=== PATIENT | female | born 1955 | race Caucasian/White ===

== ENCOUNTER 2016-10-08 14:39 | Inpatient (IN) | payer OTHER ==
[~2016-10-08] VITALS: Ht 162.6 cm; Wt 96.6 kg
[~2016-10-08 14:39] MED LIST: ALDA2525 PO; ARIM1TAB PO; BENA20 PO; BUSP5 PO; CETI10 PO; DILA2TAB2; FERR220E3; FERR324T4 PO; FOLITAB5; GUAI600 PO; LAMO25TA PO; LEXA20TA PO; LISI-363 PO; MAGN250T3; METO50TA PO; MORP1INJ45 PO; MULT1TAB46; NAPR250T57 PO; NEXI40CA PO; NIFE1TAB85 PO; PROP20TA3 PO; SIMV20 PO; VITATAB25 PO; WOMECAP2 PO
[2016-10-08] MEDS: SODIUM CHLOR 0.9% 1000 ML INJ 1,000 ML IV SCH ×2 (15:44→19:28)
[2016-10-08 15:57] LABS: BACTERIA, URINE RARE /hpf; BLOOD, URINE NEG (NEG); GLUCOSE,URINE NEG (NEG); HYALINE CAST, URINE 1 /lpf (RARE); KETONE, URINE NEG (NEG); MUCUS URINE FEW /lpf (OCC); NITRITE,URINE NEG (NEG); SQUAMOUS EPITHELIAL CELL URINE 2 /hpf (0-5); TRANSITIONAL EPI CELLS, URINE <1 /hpf; URINE COLOR YELLOW (YELLW/STRAW)
[2016-10-08 15:58] LABS: COMMENT (UR) CATH-CULTURE IND; CULTURE IF INDICATED CATH CULTURE IND
--- NOTE | 2016-10-08 16:15 | PD ---
HPI Chief Complaint: General Weakness Time Seen by Provider: 17:11 Travel History International Travel<30 days: No Contact w/Intl Traveler<30days: No Traveled to known affect area: No History of Present Illness HPI 60-year-old female with unfortunate history of stage IV metastatic breast cancer , presents here at the request of her oncologist, Dr. Bryson Lucas for evaluation. The patient apparently has been unsteady on her gait and has had multiple falls. She's also had confusion which is worsening. She reportedly had a UTI and was prescribed Macrodantin. Unfortunate, Macrodantin was making her ill and they stop the Macrodantin after only 2 days of treatment. There is no reported fevers, chills. There is no reported chest pain, chest pressure. There is no reported shortness of breath or cough. The patient has obvious ecchymosis and her periorbital area as well as abrasions to her forehead. PFSH Past Medical History Anemia: Yes Asthma: Yes (FREQUENT BRONCHITIS) Depression: Yes Cancer: Yes (BREAST CA) Cardiovascular Problems: Yes Chemotherapy: Yes Diabetes: Yes (TYPE 2=CONTROLLED BY DIET) Endocrine: Yes (parathyroidism) Gastrointestinal Disorders: Yes GERD: Yes Genitourinary: No Hepatitis: No Hiatal Hernia: Yes Hypertension: Yes Immune Disorder: No Implanted Vascular Access Dvce: Yes Kidney Stones: Yes Musculoskeletal: No Neurologic: No Psychiatric: Yes (PTSD X 2 DEPRESSION) Reproductive: No Respiratory: Yes (ASTHMA) Immunizations Current: Yes Pancreatitis: Yes Thyroid Disease: No Tetanus Vaccination: Unknown Influenza Vaccination: No ?: Not Menopausal: Yes Ectopic : Yes Past Surgical History Abdominal Surgery: Yes (COLON RESECTION, CHOLECYSTECTOMY, ABD. HERNIA REPAIR) AICD: No Cardiac Surgery: No Ear Surgery: No Eye Surgery: No Genitourinary Surgery: Yes (LITHOTRIPSY) Gynecologic Surgery: No Joint Replacement: No Mastectomy: Yes (BILATERAL) Oral Surgery: No Pacemaker: No Thoracic Surgery: Yes (BILATERAL MASTECTOMY) Tonsillectomy: Yes Other Surgery: Yes (17 LYMPH NODES REMOVED ON LEFT, PARATHYROIDECTOMY) Social History Alcohol Use: No Tobacco Use: No Substance Use: No Allergies-Medications (Allergen,Severity, Reaction): Coded Allergies: Macrodantin (Verified Allergy, Severe, NAUSEA, 10/08/16) Cipro (Verified Adverse Reaction, Intermediate, VOMITING, 10/08/16) ONLY ON PO Keflex (Verified Adverse Reaction, Intermediate, VOMITING, 10/08/16) ONLY ON PO Sulfa (Verified Adverse Reaction, Intermediate, VOMITING, 10/08/16) ONLY ON PO Reported Meds & Prescriptions Reported Meds & Active Scripts Active Reported Simvastatin 20 Mg Tab 20 Mg PO DAILY Propranolol (Propranolol HCl) 20 Mg Tab 20 Mg PO Q12HR Multiple Vitamin 1 Tab 1 Tab PO DAILY Metoprolol Tartrate 50 Mg Tab 50 Mg PO BID Magnesium Oxide 250 Mg Tab 250 Mg PO DAILY Lisinopril 20 Mg Tab 20 Mg PO DAILY Lamotrigine ER (Lamotrigine) 25 Mg Arturo 25 Mg PO DAILY Dilaudid (Hydromorphone HCl) 2 Mg Tab 2 Mg PO Q4H PRN Mucinex ER 12 HR (Guaifenesin) 600 Mg Arturo 600 Mg PO BID Lexapro (Escitalopram Oxalate) 20 Mg Tab 20 Mg PO DAILY Vitamin D-1000 (Cholecalciferol) 1,000 Unit Tab 1,000 Units PO DAILY Cetirizine (Cetirizine HCl) 10 Mg Tab 10 Mg PO DAILY Buspirone (Buspirone HCl) 5 Mg Tab 5 Mg PO BID PRN Review of Systems Except as stated in HPI: all other systems reviewed are Neg General / Constitutional: No: Fever, Chills HENT: Positive: Headaches, Lightheadedness, No: Neck Stiffness, Neck Pain ( abrasions to the head.) Cardiovascular: No: Chest Pain or Discomfort, Palpitations Respiratory: No: Cough, Shortness of Breath Gastrointestinal: Positive: Loss of Appetite, No: Nausea, Vomiting, Diarrhea, Abdominal Pain Genitourinary: Positive: Other (recent UTI that was partially treated), No: Urgency, Dysuria, Incontinence Musculoskeletal: Positive: Weakness, No: Myalgias Skin: Positive Other (brain lesions to the for head) Neurologic: Positive: Weakness, Dizziness, Change in Mentation, Slurred Speech , No: Headache (although abrasions to the forehead and periorbital ecchymosis from falls.), Incontinence Physical Exam Narrative GENERAL: This is an ill appearing female in no obvious acute respiratory distress. The patient has obvious periorbital ecchymosis. SKIN: Focused skin assessment warm/dry. HEAD: Normocephalic. To abrasions to her forehead. These appear to be greater than 4 hours old. EYES: No scleral icterus. No injection or drainage. There is periorbital ecchymosis bilaterally. ENT: No nasal bleeding or discharge. Dry mucous membranes. NECK: Trachea midline. No JVD. Supple CARDIOVASCULAR: Regular rate and rhythm. No murmur appreciated. RESPIRATORY: No accessory muscle use. Clear to auscultation. Breath sounds equal bilaterally. GASTROINTESTINAL: Abdomen soft, non-tender, nondistended. MUSCULOSKELETAL: No obvious deformities. No skin tenting. No edema. NEUROLOGICAL: Awake and confused. No obvious cranial nerve deficits. Motor grossly within normal limits. Slurred speech. The patient is alert to person, not place or year. She knows the president is and the day of the week. Data Data Last Documented VS Vital Signs Date Time Temp Pulse Resp B/P Pulse Ox O2 Delivery O2 Flow Rate FiO2 10/08/16 16:17 73 16 143/98 98 10/08/16 15:45 Room Air Orders Electrocardiogram (10/08/16 15:03) Troponin I (10/08/16 15:03) Lactic Acid Sepsis Protocol (10/08/16 15:03) Urinalysis - C+S If Indicated (10/08/16 15:03) Blood Culture (10/08/16 15:03) Blood Glucose (10/08/16 15:03) Ecg Monitoring (10/08/16 15:03) Iv Access Insert/Monitor (10/08/16 15:03) Oximetry (10/08/16 15:03) Sodium Chloride 0.9% Flush (Ns Flush) (10/08/16 15:15) Sodium Chlor 0.9% 1000 Ml Inj (Ns 1000 M (10/08/16 15:03) Mri Brain W&W/O Contrast (10/08/16 15:36) Urine Culture (10/08/16 15:35) Place In Observation (10/08/16 ) Vital Signs (Adult) CRUZ.Q4H (10/08/16 17:28) Activity Oob With Assistance (10/08/16 17:28) Diet Heart Healthy (10/08/16 Dinner) Troponin I (10/08/16 21:00) Complete Blood Count With Diff (10/09/16 06:00) Comprehensive Metabolic Panel (10/09/16 06:00) Troponin I (10/09/16 06:00) Electrocardiogram (10/09/16 06:00) Admit Order (Ed Use Only) (10/08/16 17:31) Labs Laboratory Tests Test 10/08/16 10/08/16 15:00 15:35 Lactic Acid Level 1.8 mmol/L Troponin I 0.15 NG/ML Urine Color YELLOW Urine Turbidity HAZY Urine pH 6.0 Urine Specific [place] 1.020 Urine Protein 100 mg/dL Urine Glucose (UA) NEG mg/dL Urine Ketones NEG mg/dL Urine Occult Blood NEG Urine Nitrite NEG Urine Bilirubin NEG Urine Urobilinogen 2.0 MG/DL Urine Leukocyte Esterase SMALL Urine RBC 4 /hpf Urine WBC 11 /hpf Urine Squamous Epithelial 2 /hpf Cells Urine Transitional Epithelial <1 /hpf Cells Urine Bacteria RARE /hpf Urine Hyaline Casts 1 /lpf Urine Mucus FEW /lpf Microscopic Urinalysis Comment CATH-CULTURE IND MDM Medical Decision Making Medical Screen Exam Complete: Yes Emergency Medical Condition: Yes Differential Diagnosis Metastatic intracranial lesion versus traumatic intracranial injury versus sepsis versus metabolic derangement. Narrative Course 60-year-old female with unfortunate history of stage IV breast cancer, with metastatic lesions to her spine, who presents today at the request of Dr. Rodrigez for evaluation. The patient has a history of multiple falls striking her head. She was partially treated for UTI. She is noted to have a continued UTI. She is also noted to be dehydrated. MRI of the brain is pending at this time. She will need admission and has been discussed with Dr. Chucho oRse. I discussed with the patient's that Dr. Rice, physician replacing this physician, will evaluate the MRI and give him the results. The was very upset and angry that it was taking so long. I did apologize to him and stated that we have no control over the time it takes 2 to perform an MRI. He was still angry and was unhappy with the care. He made multiple comments that he was unhappy with how long it took. The patient has artery been admitted. Antibiotics for the UTI have been ordered. Diagnosis Primary Impression: Dehydration Additional Impressions: Cystitis weakness with multiple falls. Breast cancer metastasized to bone elevated troponin likely secondary to cardiomyopathy Manish Frey MD Oct 08, 2016 16:15
[2016-10-08 16:17] VITALS: BP 143/98; PULSE 73; RESP 16; O2SAT 98
[2016-10-08] MEDS ORDERED: CETI10 PO (17:23)
[2016-10-08] MEDS ORDERED: MAGN250T11 PO (17:23)
[2016-10-08] MEDS ORDERED: VITA1000 PO (17:23)
[2016-10-08] MEDS ORDERED: DILA2TAB2 PO (17:23)
[2016-10-08] MEDS ORDERED: METO50TA PO (17:23)
[2016-10-08] MEDS ORDERED: PROP20TA3 PO (17:23)
[2016-10-08] MEDS ORDERED: SIMV20TA PO (17:23)
[2016-10-08] MEDS ORDERED: LISI-515 PO (17:23)
[2016-10-08] MEDS ORDERED: LEXA20TA PO (17:23)
[2016-10-08] MEDS ORDERED: MULTTAB67 PO (17:23)
[2016-10-08] MEDS ORDERED: LAMO25TA PO (17:23)
[2016-10-08] MEDS ORDERED: MUCI600T PO (17:23)
[2016-10-08] MEDS ORDERED: BUSP5TAB PO (17:23)
[2016-10-08] MEDS ORDERED: MORPHINE SULFATE 4 MG/ML INJ IV PUSH ONE (17:30)
[2016-10-08] MEDS ORDERED: cefTRIAXone INJ 1,000 MG in SODIUM CHLORIDE 0.9% INJ 100 ML IV ONE (18:15)
[2016-10-08] MEDS ORDERED: GADOBENATE DIM PF 529 MG/ML 20ML VIAL (for RAD MRI) IV ONE (18:50)
[2016-10-08] MEDS: SODIUM CHLORIDE 0.9% FLUSH 10 ML FLUSH IVF PRN (19:28)
[2016-10-08 19:29] VITALS: BP 138/108; PULSE 77; RESP 18; O2SAT 96
--- NOTE | 2016-10-08 19:37 | RADRPT ---
EXAM DATE/TIME: 10/08/2016 18:33 [facility] COMPARISON: MRI BRAIN W & W/O CONTRAST, November 09, 2015, 15:43. CT BRAIN W/O CONTRAST, Dec, 20:10. INDICATIONS : Mass. CONTRAST: 19 cc Multihance (gadobenate) IV MEDICAL HISTORY : Carcinoma, breast. Hypertension. SURGICAL HISTORY : Colon resection. Sigmoidectomy. Hernia repair. ENCOUNTER: Subsequent ACUITY: 1 day PAIN SCORE: 3/10 LOCATION: cranial TECHNIQUE: Multiplanar, multisequence MRI of the brain was performed both prior to and following the administration of paramagnetic contrast. FINDINGS: There is a small meningioma coming off the cribriform plates behind the florencio nuvia measuring almost 1.5 cm in transverse diameter and 1.4 cm in craniocaudal dimension no change since 2015. There is no evidence for intracranial hemorrhage, mass effect, edema, or extra-axial fluid collections. There ar e no signs of acute infarction for technique. The diffusion portion is unremarkable. Slight degree o f brain atrophy is seen. Slight periventricular white matter changes are seen nonspecific mostly cons istent with chronic small vessel ischemic changes. CONCLUSION: Stable meningioma not changed since 2015. Marco Arceo MD on October 08, 2016 at 19:31 Board Certified Radiologist. This report was verified electronically.
[2016-10-08 20:20] VITALS: BP 139/107; PULSE 74; RESP 17; TEMP 96.8; O2SAT 95
--- NOTE | 2016-10-08 20:42 | HHI.HP ---
HPI Service [facility] Hospitalists Primary Care Physician Lesa Dickson M.D. Admission Diagnosis dehydration, cystitis, stage 4 metastatic breast cancer Chief Complaint: Sent by oncologist for general weakness, falls, confusion Travel History International Travel<30 Days: No Contact w/Intl Traveler <30 Da: No Traveled to Known Affected Are: No History of Present Illness 60-year-old female with history of stage IV metastatic breast cancer with metastases to lungs and bones, presents here at the request of her oncologist, Dr. Bryson Lucas for evaluation. The patient apparently has been unsteady on her gait and has had multiple falls of late. She's also had confusion which is worsening over the last few days. She reportedly had a UTI and was prescribed Macrodantin as outpatient. Unfortunately, Macrodantin was making her sick on her stomach and she stopped the Macrodantin after only 2 days of treatment. There is no reported fevers, chills. There is no reported chest pain, chest pressure. There is no reported shortness of breath or cough. The patient has obvious ecchymosis and her periorbital area as well as abrasions to her forehead from a reported fall approximately 2 days ago. There was no loss of consciousness with that fall. Patient reports that she is unsteady on her feet especially when she is ill with an infection. Per Dr. Lucas's notes her disease is extensive but had stabilized when comparing most recent PET scans. Her pain has been controlled with Dilaudid at home and Zofran has been used effectively for her nausea. Review of Systems ROS Limitations: Clinical Condition, Poor Historian Constitutional: COMPLAINS OF: Fatigue, Weight loss, Dizziness Ears, nose, mouth, throat: COMPLAINS OF: Vertigo Respiratory: DENIES: Apneas, Cough, Snoring, Wheezing, Hemoptysis, Sputum production, Shortness of breath Cardiovascular: COMPLAINS OF: Dyspnea on Exertion, DENIES: Chest pain, Palpitations, Syncope, PND, Lower Extremity Edema, Orthopnea, Claudication Gastrointestinal: COMPLAINS OF: Nausea, Vomiting Musculoskeletal: COMPLAINS OF: Joint pain, Back pain Hematologic/lymphatic: COMPLAINS OF: Bruising, DENIES: Lymphadenopathy Neurologic: COMPLAINS OF: Abnormal gait, Poor Balance Psychiatric: COMPLAINS OF: Anxiety, Depression Past Family Social History Past Medical History Altered mental status Major depressive disorder Diabetic nephropathy Encephalopathy GERD Hypertension Hyperlipidemia Hyperparathyroidism Metastatic breast cancer to bone and lung Pulmonary hypertension Past Surgical History Mastectomy Cholecystectomy Axillary lymph node dissection ERCP Laparoscopic repair of hernia Left lower parathyroidectomy Partial colectomy in 1989 Tonsillectomy and adenoidectomy Open reduction internal fixation left elbow Reported Medications Simvastatin 20 Mg Tab 20 Mg PO DAILY Propranolol (Propranolol HCl) 20 Mg Tab 20 Mg PO Q12HR Multiple Vitamin 1 Tab 1 Tab PO DAILY Metoprolol Tartrate 50 Mg Tab 50 Mg PO BID Magnesium Oxide 250 Mg Tab 250 Mg PO DAILY Lisinopril 20 Mg Tab 20 Mg PO DAILY Lamotrigine ER (Lamotrigine) 25 Mg Arturo 25 Mg PO DAILY Dilaudid (Hydromorphone HCl) 2 Mg Tab 2 Mg PO Q4H PRN Mucinex ER 12 HR (Guaifenesin) 600 Mg Artruo 600 Mg PO BID Lexapro (Escitalopram Oxalate) 20 Mg Tab 20 Mg PO DAILY Vitamin D-1000 (Cholecalciferol) 1,000 Unit Tab 1,000 Units PO DAILY Cetirizine (Cetirizine HCl) 10 Mg Tab 10 Mg PO DAILY Buspirone (Buspirone HCl) 5 Mg Tab 5 Mg PO BID PRN Allergies: Coded Allergies: Macrodantin (Verified Allergy, Severe, NAUSEA, 10/08/16) Cipro (Verified Adverse Reaction, Intermediate, VOMITING, 10/08/16) ONLY ON PO Keflex (Verified Adverse Reaction, Intermediate, VOMITING, 10/08/16) ONLY ON PO Sulfa (Verified Adverse Reaction, Intermediate, VOMITING, 10/08/16) ONLY ON PO Family History Noncontributory Social History Former smoker Lives with her but they've had some marital conflict Generally walks with a cane or walker Occasionally drinks alcohol Originally from [place] but now lives in [place] Physical Exam Vital Signs Vital Signs Date Time Temp Pulse Resp B/P Pulse Ox O2 Delivery O2 Flow Rate FiO2 10/08/16 19:29 77 18 138/108 96 Room Air 10/08/16 16:17 73 16 143/98 98 10/08/16 15:45 75 16 96 Room Air Physical Exam GENERAL: This is a well-nourished, well-developed patient, in no apparent distress. She is a bit confused but that is her baseline per caregiver report. SKIN: Periorbital ecchymosis with 2 abrasions on the right frontal scalp and one area of ecchymosis right forehead HEAD: As noted above. No temporal or scalp tenderness. EYES: Pupils equal round and reactive. Extraocular motions intact. No scleral icterus. No injection or drainage. ENT: Nose without bleeding, purulent drainage or septal hematoma. . Airway patent. NECK: Trachea midline. No JVD or lymphadenopathy. Supple, nontender, no meningeal signs. CARDIOVASCULAR: Regular rate and rhythm without murmurs, gallops, or rubs. RESPIRATORY: Clear to auscultation. Breath sounds equal bilaterally with decreased breath sounds in the bases. No wheezes, rales, or rhonchi. GASTROINTESTINAL: Abdomen soft, non-tender, nondistended. No hepato-splenomegaly , or palpable masses. No guarding. MUSCULOSKELETAL: Extremities without clubbing, cyanosis. Trace edema in her feet. No calf tenderness. NEUROLOGICAL: Awake and alert. Cranial nerves II through XII intact. Motor and sensory grossly within normal limits. 4.5 out of 5 muscle strength in all muscle groups. Normal speech. Laboratory Laboratory Tests Test 10/08/16 10/08/16 15:00 15:35 Lactic Acid Level 1.8 Troponin I 0.15 Urine Color YELLOW Urine Turbidity HAZY Urine pH 6.0 Urine Specific Pearl 1.020 Urine Protein 100 Urine Glucose (UA) NEG Urine Ketones NEG Urine Occult Blood NEG Urine Nitrite NEG Urine Bilirubin NEG Urine Urobilinogen 2.0 Urine Leukocyte Esterase SMALL Urine RBC 4 Urine WBC 11 Urine Squamous Epithelial 2 Cells Urine Transitional Epithelial <1 Cells Urine Bacteria RARE Urine Hyaline Casts 1 Urine Mucus FEW Microscopic Urinalysis Comment CATH-CULTURE IND Date/Time Procedure Status Source Growth 10/08/16 15:35 Urine Culture Received Urine Catheterized Urine Pending 10/08/16 15:15 Aerobic Blood Culture Received Blood Peripheral Pending 10/08/16 15:15 Anaerobic Blood Culture Received Blood Peripheral Pending Imaging Last 72 hours Impressions Brain MRI 10/08/16 1536 Signed Impressions: Service Date/Time: , October 08, 2016 18:33 - CONCLUSION: Stable meningioma not changed since 2016. Marco Arceo MD Assessment and Plan Problem List: (1) Cystitis Status: Acute Plan: Patient has multiple sensitivities to oral antibiotics. These all appear to be GI related and she tolerates IV antibiotics well. We'll continue current IV Rocephin. (2) Troponin I above reference range Status: Acute Plan: No chest pain outside her musculoskeletal complaints. Possibly associated with recent trauma We'll monitor. Likely would not be overly aggressive given her other significant comorbidities. (3) Breast cancer metastasized to bone Status: Chronic Plan: Per Dr. Lucas. Palliative chemotherapy. (4) HTN (hypertension) Status: Chronic Plan: Continue medications. (5) Depression Status: Chronic Plan: Continue medication. (6) Diabetic nephropathy associated with type 2 diabetes mellitus Status: Chronic Plan: Apparently well controlled with diet as her last A1c was 4.9 in March 2016. Discussed Condition With Patient, her caregiver, her and ER physician. Problem Qualifiers (1) Breast cancer metastasized to bone: Qualified Code: C50.912 - Breast cancer metastasized to bone, left (2) HTN (hypertension): Qualified Code: I10 - Essential hypertension (3) Depression: Chucho Rose MD PhD Oct 08, 2016 20:42
[2016-10-08] MEDS ORDERED: NS + KCL 20 MEQ INJ 1,000 ML IV SCH (21:00)
[2016-10-08] MEDS: busPIRone HCL 10 MG TAB PO SCH (21:03)
[2016-10-08] MEDS: METOPROLOL TARTRATE 50 MG TAB PO SCH (21:04)
[2016-10-09] VITALS: BP 118/90; PULSE 77; RESP 19; TEMP 97.6; O2SAT 96
[2016-10-09] MEDS: ALPRAZolam 0.5 MG TAB PO PRN (00:44)
[2016-10-09] MEDS: HYDROmorphone HCL 2 MG TAB PO PRN (00:55)
[2016-10-09 04:00] VITALS: BP 122/90; PULSE 75; RESP 17; TEMP 97.1; O2SAT 96
[2016-10-09 07:44] LABS: AUTOMATED NEUTROPHIL # 2.4 TH/MM3 (1.8-7.7); BASOPHIL % 0.8 % (0.0-2.0); HEMATOCRIT 35.3 % (35.0-46.0); HEMO FLAGS DIFF FINAL; LYMPHOCYTE # 0.9 TH/MM3 (1.0-4.8); MEAN CELL VOLUME 86.4 FL (80.0-100.0); MEAN CORPUSCULAR HEMOGLOBIN 27.3 PG (27.0-34.0); MEAN CORPUSCULAR HGB CONC 31.6 % (32.0-36.0); MONO % 13.3 % (0.0-8.0); NEUT % 61.9 % (16.0-70.0); PLATELET COUNT 165 TH/MM3 (150-450); RED BLOOD COUNT 4.09 MIL/MM3 (4.00-5.30); RED CELL DISTRIBUTION WIDTH 19.5 % (11.6-17.2); WHITE BLOOD COUNT 3.9 TH/MM3 (4.0-11.0)
[2016-10-09 07:47] LABS: ANION GAP 11 MEQ/L (5-15); BICARBONATE 20.5 MEQ/L (21.0-32.0); BLOOD UREA NITROGEN 21 MG/DL (7-18); CHLORIDE 109 MEQ/L (98-107); SODIUM (NA) 140 MEQ/L (136-145)
[2016-10-09 07:50] LABS: ALKALINE PHOSPHATASE 136 U/L (45-117); ALT (GPT) 32 U/L (10-53); AST (GOT) 37 U/L (15-37); GLOMERULAR FILTRATION RATE 41 ML/MIN (>89); TOTAL BILIRUBIN ADULT 0.5 MG/DL (0.2-1.0)
[2016-10-09 07:56] LABS: POTASSIUM 4.4 MEQ/L (3.5-5.1)
[2016-10-09 08:00] VITALS: BP 172/86; PULSE 74; RESP 20; TEMP 97; O2SAT 96
--- NOTE | 2016-10-09 08:33 | HHI.PR ---
Subjective Remarks mostly confused but cooperative Objective Vitals forehead with abrasions periorbital ecchymosis heart reg lung cta abd s/nt/nabs ext no edema neuro. no facial droop. moves all 4 ext's well in bed. confused and partially able to reorient her pleasant and follows commands. Vital Signs Date Time Temp Pulse Resp B/P Pulse Ox O2 Delivery O2 Flow Rate FiO2 10/09/16 04:00 97.1 75 17 122/90 96 10/09/16 01:55 18 10/09/16 00:00 97.6 77 19 118/90 96 10/08/16 20:20 96.8 74 17 139/107 95 10/08/16 19:29 77 18 138/108 96 Room Air 10/08/16 16:17 73 16 143/98 98 10/08/16 15:45 75 16 96 Room Air 10/08/16 10/08/16 10/09/16 15:00 23:00 07:00 Intake Total 480 ml Balance 480 ml Intake Oral 480 ml # Voids 1 2 # Bowel Movements 0 Result Diagram: 10/09/16 0620 10/09/16 0620 Imaging Last 72 hours Impressions Brain MRI 10/08/16 1536 Signed Impressions: Service Date/Time: October 18:33 - CONCLUSION: Stable meningioma not changed since 2015. 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 nodes s/p willie. mastectomy, LN dissection, and chemotherapy. - Now with recurrent adenocarcinoma with breast mets to thoracolumbar spine/ sacrum, bilateral femurs. - She has had difficulty walking on left leg probably due to tumor impingement on nerve - MRI brain (11/09/15) --> no metastasis to brain noted - Further imaging revealed widespread taz metastatic disease - Neurosurgery was consulted for the sacral mass which extends into the iliac area and sacroiliac joints which is likely irritating the left lumbosacral plexus or nerve roots and the cause for her back pain and left LE weakness. -She was admitted last yr with metabolic encephalopathy -She is undergoing chemo with Dr Lucas. Last pet scan in August showed stable dz. Brought in for frequents falls/unsteady gait, and more delirium. labs reveal some degree of dehydration/emilee. she had recent problems with diarrhea there was question of uti outpt and she had been placed on abx which made her sick. eval for metabolic causes underway again ED initiated abx and cx pending. gentle ivf and monitor for chf decompensation PT eval dvt prophylaxis high fall risk currently. (2) Falls frequently Status: Acute Plan: see above (3) EMILEE (acute kidney injury) Status: Acute Plan: see above (4) Encephalopathy acute Status: Acute Plan: see above (5) Breast cancer metastasized to bone Status: Chronic Plan: Per Dr. Lucas. Palliative chemotherapy. (6) Cardiomyopathy Status: Chronic Plan: systolic chf compensated. ef 35% (7) HTN (hypertension) Status: Chronic Plan: Continue medications. (8) Depression Status: Chronic Plan: Continue medication. Problem Qualifiers (1) Breast cancer metastasized to bone: Qualified Code: C50.912 - Breast cancer metastasized to bone, left (2) HTN (hypertension): Qualified Code: I10 - Essential hypertension (3) Depression: Bryson Steiner MD Oct 09, 2016 08:33 Bryson Steiner MD Oct 09, 2016 08:33
[2016-10-09] MEDS ORDERED: LAMOTRIGINE 25 MG PO SCH (09:00)
[2016-10-09] MEDS ORDERED: NON-FORMULARY DRUG (Magnesium Oxide 250 MG) PO SCH (09:00)
[2016-10-09] MEDS: busPIRone HCL 10 MG TAB PO SCH ×2 (09:22→22:48)
[2016-10-09] MEDS: METOPROLOL TARTRATE 50 MG TAB PO SCH ×2 (09:22→22:48)
[2016-10-09] MEDS: MULTIVITAMIN TAB PO SCH (09:22)
[2016-10-09] MEDS: ESCITALOPRAM OXALATE 20 MG TAB PO SCH (09:22)
[2016-10-09] MEDS: PRAVASTATIN SOD 40 MG TAB PO SCH (09:22)
[2016-10-09 12:00] VITALS: BP 135/90; PULSE 73; RESP 20; TEMP 96.3; O2SAT 96
--- NOTE | 2016-10-09 13:40 | EKG ---
Date Performed: 10/08/2016 Time Performed: 16:00:00 PTAGE: 60 years EKG: Sinus rhythm NONSPECIFIC T-WAVE ABNORMALITY BORDERLINE ECG NO PREVIOUS TRACING DOCTOR: Yaya Ayala Interpretating Date/Time 10/09/2016 13:37:19
--- NOTE | 2016-10-09 13:41 | EKG ---
Date Performed: 10/09/2016 Time Performed: 01:52:56 PTAGE: 60 years EKG: Sinus rhythm SEPTAL MYOCARDIAL INFARCTION , PROBABLY OLD ABNORMAL ECG Compared to prior tracing no significant ch jayjay PREVIOUS TRACING : 10/08/2016 16.00 DOCTOR: Yaya Ayala Interpretating Date/Time 10/09/2016 13:37:31
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
[2016-10-09 16:00] VITALS: BP 150/92; PULSE 78; RESP 20; TEMP 97.9; O2SAT 98
--- NOTE | 2016-10-09 18:35 | MB ---
cc: ANGIE LING M.D. DATE OF CONSULTATION 10/09/16 DATE OF 1955 AGE [id number]. REASON FOR CONSULTATION Change in mental status, falls. HISTORY OF PRESENT ILLNESS The patient is a 60-year-old woman with stage IV metastatic breast cancer with metastasis to the lungs and bones, presented to the hospital per her oncologist, Dr. Lucas for evaluation of falls, unsteady gait, confusion. She reportedly had a UTI and was in the past on Macrodantin, now she is on ceftriaxone I believe and culture and sensitivity is pending for her UA. The patient denies any headache, chest pain, shortness of breath. She is confused, not a very good historian at this point in time. States at times she feels dizzy, lightheaded, cannot tell me if she has passed out or not but she has had abrasions on the forehead and ecchymosis around the eyes. Apparently, the patient has a most recent PET scan that has been stable. She is at home on Dilaudid p.r.n. and Zofran. PAST MEDICAL HISTORY Her past medical history is of depression, diabetic nephropathy, encephalopathy, reflux, hypertension, hyperlipidemia. Metastatic Breast cancer to the bone and lung. Hyperparathyroidism per chart, pulmonary hypertension. PAST SURGICAL HISTORY Mastectomy, cholecystectomy, axillary lymph node resection, ERCP, laparoscopic repair of hernia, parathyroidectomy, left lower partial colectomy 1989. Tonsils and adenoids, ORIF left elbow. MEDICATIONS Home medicines are: 1. Simvastatin. 2. Propranolol. 3. Multivitamins. 4. Metoprolol. 5. Magnesium. 6. Lisinopril. 7. Lamotrigine. 8. Dilaudid. 9. Mucinex. 10. Lexapro. 11. Vitamin D. 12. Cetirizine. 13. Buspirone. ALLERGIES ALLERGY TO MACRODANTIN, CIPRO, KEFLEX, SULFA. FAMILY HISTORY Family history noncontributory. SOCIAL HISTORY Ex-smoker. Lives with her . Usually walks with a cane or walker. Rare occasional alcohol.. PHYSICAL EXAMINATION VITAL SIGNS: On exam vitals temperature is 97, pulse 74, respiratory rate 20, blood pressure 172/86, satting at 96%. Her lowest blood pressure since admission had been 118/90. NECK: Supple. I do not appreciate any carotid bruits. HEART: Her heart is regular. LUNGS: Clear. NEURO: She is awake and alert. She knows she is in the hospital, cannot name the hospital. She knows it is October 2016, does not know the day or the date. Her speech otherwise is fluent. Pupils are reactive. There is no nystagmus. Visual tovar seem full. Face symmetrical, tongue midline. She does have abrasions over the forehead from the fall as well as ecchymosis nose and eye region orbital periorbital. Motor wallace she does not exhibit any significant weakness in one area. No Fadi's sign. No drift. No leg lag. Toes are downgoing. Sensory exam is intact to light touch and noxious stimuli pinprick. [id number] she does not pass point. Gait is withheld due to safety. Will need to have physical therapy assess her. LABORATORY DATA CBC white count 3.9, hemoglobin 11.1, RDW is 19.5, platelets 165,000. Chemistries, ammonia is 45. Her troponin three sets 0.15, 0.09, 0.16. Ammonia is 45 but creatinine is 1.32, BUN 21, GFR 41, CO2 20.5, albumin 3.1. Urine is hazy, 100 protein, 11 white cells. Cultures pending. Microbiology so far shows immature growth of the urine. No growth one day in the blood. MRI of the brain with and without gadolinium shows a small meningioma off of the cribriform plate measuring 1.5 x 1.4. No change since 2016. There is no intracranial hemorrhage. No mass effect. No edema. No fluid collections no acute infarct. Some white matter changes with small vessel disease. IMPRESSION 1. Change in mental status, mild encephalopathy. 2. Falls, etiology unknown at this point in time. RECOMMENDATIONS From my perspective would be to obtain an EEG. Have PT assess her. I do not see any signs of orthostatic hypotension. Do not think we need to do orthostatics at this time, however, consideration. I do not think she has a paraneoplastic panel but will defer that to her oncologist and certainly we can get a paraneoplastic lab panel. Consider getting another protein electrophoresis, a CEA if indicated. Will get some vitamin levels, B12, B1, B6 and further recommendations to be made accordingly but I think physical therapy needs to get her out of bed. She already is on ceftriaxone. Will wait for the UA to see if it grows any bacteria. I would limit her pain medications as much as possible in the event contributes to some of her falls. She does ambulate at baseline she says with a cane or walker, so not sure that she have a fall with these add on appliances or not. Continue current recommendations. Please call me with any questions, concerns or updates. MD CRISTOBAL Rivera/SEAMUS /1:08 PM /6:14 PM
[2016-10-09 20:00] VITALS: BP 160/93; PULSE 80; RESP 20; TEMP 97.4; O2SAT 95
[2016-10-09] MEDS ORDERED: cefTRIAXone INJ 1,000 MG in SODIUM CHLORIDE 0.9% INJ 100 ML IV SCH (20:00)
[2016-10-10] VITALS (7 sets, daily range): BP systolic 116–159; BP diastolic 74–117; PULSE 71–82; RESP 17–22; TEMP 96–97.2; O2SAT 93–100
[2016-10-10] MEDS: PRAVASTATIN SOD 40 MG TAB PO SCH (08:07)
[2016-10-10] MEDS: MULTIVITAMIN TAB PO SCH (08:07)
[2016-10-10] MEDS: METOPROLOL TARTRATE 50 MG TAB PO SCH ×2 (08:07→20:38)
[2016-10-10] MEDS: busPIRone HCL 10 MG TAB PO SCH ×2 (08:07→20:38)
[2016-10-10] MEDS: SODIUM CHLORIDE 0.9% FLUSH 10 ML FLUSH IVF PRN (08:08)
[2016-10-10] MEDS: ESCITALOPRAM OXALATE 20 MG TAB PO SCH (08:08)
[2016-10-10] MEDS ORDERED: ALTEPLASE RECOMBINANT 2 MG VIAL INTRACATH SCH (08:15)
--- NOTE | 2016-10-10 11:11 | HHI.PR ---
Subjective Remarks more alert and still confused but improved was oob and ambulating to bedside commode unassisted. Objective Vitals heart reg lung cta abd s/nt ext no edema periorbital ecchymosis forehead abrasions. more oriented but still confused. pleasant and follows commands. Vital Signs Date Time Temp Pulse Resp B/P Pulse Ox O2 Delivery O2 Flow Rate FiO2 10/10/16 08:00 96.0 74 22 156/105 100 10/10/16 04:00 97.2 82 20 147/90 95 10/10/16 00:00 96.9 77 18 144/107 93 10/09/16 20:00 97.4 80 20 160/93 95 10/09/16 16:00 97.9 78 20 150/92 98 10/09/16 12:00 96.3 73 20 135/90 96 10/09/16 10/09/16 10/10/16 15:00 23:00 07:00 Intake Total 1080 ml 110 ml 240 ml Balance 1080 ml 110 ml 240 ml Intake Oral 1080 ml 240 ml IV Total 110 ml # Voids 7 3 # Bowel Movements 1 1 Result Diagram: 10/09/16 0620 10/09/16 0620 Imaging Last 72 hours Impressions Brain MRI 10/08/16 1536 Signed Impressions: Service Date/Time: October 18:33 - CONCLUSION: Stable meningioma not changed since 2015. 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 nodes s/p willie. mastectomy, LN dissection, and chemotherapy. - Now with recurrent adenocarcinoma with breast mets to thoracolumbar spine/ sacrum, bilateral femurs. - She has had difficulty walking on left leg probably due to tumor impingement on nerve - MRI brain (11/09/15) --> no metastasis to brain noted - Further imaging revealed widespread taz metastatic disease - Neurosurgery was consulted for the sacral mass which extends into the iliac area and sacroiliac joints which is likely irritating the left lumbosacral plexus or nerve roots and the cause for her back pain and left LE weakness. -She was admitted last yr with metabolic encephalopathy -She is undergoing chemo with Dr Lucas. Last pet scan in August showed stable dz. Brought in for frequents falls/unsteady gait, and more delirium. labs reveal some degree of dehydration/emilee. she had recent problems with diarrhea there was question of uti outpt and she had been placed on abx which made her sick. eval for metabolic causes underway again ED initiated abx and cx pending. gentle ivf and monitor for chf decompensation PT eval dvt prophylaxis high fall risk currently. f/u pending labs. pt agrees to snf upon d/c spoke to neurology. (2) Falls frequently Status: Acute Plan: see above (3) EMILEE (acute kidney injury) Status: Acute Plan: see above (4) Encephalopathy acute Status: Acute Plan: see above (5) Breast cancer metastasized to bone Status: Chronic Plan: Per Dr. Lucas. Palliative chemotherapy. (6) Cardiomyopathy Status: Chronic Plan: systolic chf compensated. ef 35% (7) HTN (hypertension) Status: Chronic Plan: Continue medications. (8) Depression Status: Chronic Plan: Continue medication. Problem Qualifiers (1) Breast cancer metastasized to bone: Qualified Code: C50.912 - Breast cancer metastasized to bone, left (2) HTN (hypertension): Qualified Code: I10 - Essential hypertension (3) Depression: Bryson Steiner MD Oct 10, 2016 11:11
[2016-10-10] MEDS ORDERED: LACTULOSE SYRUP 20 GM/30 ML CUP PO ONE (12:00)
[2016-10-10 12:45] LABS: BICARBONATE 20.2 MEQ/L (21.0-32.0); POTASSIUM 4.4 MEQ/L (3.5-5.1)
[2016-10-10] MEDS: HYDROmorphone HCL 2 MG TAB PO PRN (14:47)
[2016-10-10] MEDS ORDERED: SODIUM CHLOR 0.9% 1000 ML INJ 1,000 ML IV ONE (15:45)
[2016-10-10] MEDS ORDERED: cloNIDine HCL 0.1 MG TAB PO PRN (17:30)
[2016-10-10] MEDS ORDERED: LISINOPRIL 10 MG TAB PO ONE (17:30)
[2016-10-10] MEDS: LISINOPRIL 10 MG TAB PO SCH (20:38)
--- NOTE | 2016-10-10 22:33 | MG ---
cc: MARY SAINI M.D. Lab No: [id number] Date: 10/10/16 Age: 60 Sex: F Race: DATE OF 1955 Photic stimulation only. Awake, drowsy study. MRI shows stable meningioma. EEG 2015 showed some encephalopathy. This is a 60-year-old woman, unsteady gait and some falls, confusion with worsening stage IV metastatic breast cancer. MEDICATIONS 1. Lexapro. 2. Theragran. 3. Pravachol. 4. Dilaudid. 5. Xanax. DESCRIPTION OF RECORD A lot of head movement but overall the patient has a background rhythm of 6 to 7 Hz. ___ theta frequency. Mary Saini MD DF/EO /8:43 PM /10:25 PM
--- NOTE | 2016-10-10 22:55 | MG ---
cc: MARY SAINI MD Lab No: [id number] Date: 10/10/16 Age: 60 Sex: F Race: DATE OF [birth year] With photic stimulation. This is a patient with stable meningioma of the brain with metastatic breast cancer. EEG in 2015 showed encephalopathy. She comes in with worsening gait and fall. Currently on pain medication, Lexapro, Theragran. DESCRIPTION OF RECORD The patient exhibits some slowing between 5 and 6 Hz, beta frequency. Quite a bit of artifact from movement but otherwise symmetrical background. Quite a bit of movement. EKG portion looks sinus. There is some question of some sharp waves seen on occasion, bilateral. here is no active seizure-like events in the recording. Photic stimulation elicits a minimal driving response. There is some question of some phase reversal seen also in both temporal leads. IMPRESSION Abnormal EEG due to some mild slowing and some occasional sharps and phase reversals that may be a potential for seizure-like activity. However, there were no active seizures in this recording. Clinical correlation. Mary Saini MD DF/ /8:45 PM /10:47 PM
[2016-10-10] MEDS: ALPRAZolam 0.5 MG TAB PO PRN (23:07)
[2016-10-11] VITALS (7 sets, daily range): BP systolic 130–149; BP diastolic 90–103; PULSE 69–78; RESP 19–24; TEMP 96–96.9; O2SAT 95–99
[2016-10-11 05:14] LABS: BICARBONATE 19.2 MEQ/L (21.0-32.0); POTASSIUM 4.5 MEQ/L (3.5-5.1)
[2016-10-11] MEDS: MULTIVITAMIN TAB PO SCH (08:37)
[2016-10-11] MEDS: LISINOPRIL 10 MG TAB PO SCH ×2 (08:37→20:00)
[2016-10-11] MEDS: METOPROLOL TARTRATE 50 MG TAB PO SCH ×2 (08:38→20:00)
[2016-10-11] MEDS: PRAVASTATIN SOD 40 MG TAB PO SCH (08:38)
[2016-10-11] MEDS: busPIRone HCL 10 MG TAB PO SCH ×2 (08:38→20:00)
[2016-10-11] MEDS: ESCITALOPRAM OXALATE 20 MG TAB PO SCH (08:41)
--- NOTE | 2016-10-11 08:43 | HHI.PR ---
Subjective Remarks doing better. seems more oriented she seems motivated to go to rehab. Objective Vitals oriented to place/time/person cooperative and pleasant moves all ext's able to transfer to bedside commode ecchymosis periorbital heart reg lung cta abd s/nt ext n edema Vital Signs Date Time Temp Pulse Resp B/P Pulse Ox O2 Delivery O2 Flow Rate FiO2 10/11/16 03:44 96.3 69 19 149/96 97 10/11/16 00:00 96.9 78 19 138/93 95 10/10/16 20:35 97.2 71 17 135/95 97 Automatic Cuff 10/10/16 16:00 96.8 72 22 148/107 96 10/10/16 13:00 148/105 10/10/16 12:00 96.2 76 20 159/117 99 10/10/16 10/10/16 10/11/16 15:00 23:00 07:00 Intake Total 240 ml 120 ml 1399 ml Balance 240 ml 120 ml 1399 ml Intake Oral 240 ml 120 ml 480 ml IV Total 919 ml # Voids 4 2 1 # Bowel Movements 2 1 Result Diagram: 10/09/16 0620 10/11/16 0415 Imaging Last 72 hours Impressions Brain MRI 10/08/16 1536 Signed Impressions: Service Date/Time: October 18:33 - CONCLUSION: Stable meningioma not changed since 2015. 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 nodes s/p willie. mastectomy, LN dissection, and chemotherapy. - Now with recurrent adenocarcinoma with breast mets to thoracolumbar spine/ sacrum, bilateral femurs. - She has had difficulty walking on left leg probably due to tumor impingement on nerve - MRI brain (11/09/15) --> no metastasis to brain noted - Further imaging revealed widespread taz metastatic disease - Neurosurgery was consulted for the sacral mass which extends into the iliac area and sacroiliac joints which is likely irritating the left lumbosacral plexus or nerve roots and the cause for her back pain and left LE weakness. -She was admitted last yr with metabolic encephalopathy -She is undergoing chemo with Dr Lucas. Last pet scan in August showed stable dz. Brought in for frequents falls/unsteady gait, and more delirium. labs reveal some degree of dehydration/emilee. she had recent problems with diarrhea there was question of uti outpt and she had been placed on abx which made her sick. eval for metabolic causes underway again. lactulose given. ED initiated abx . stop abx. gentle ivf and monitor for chf decompensation PT eval dvt prophylaxis high fall risk currently. pt agrees to snf upon d/c..if stable consider d/c tomorrow. spoke to neurology. abnormal eeg noted (2) Falls frequently Status: Acute Plan: see above (3) EMILEE (acute kidney injury) Status: Acute Plan: see above (4) Encephalopathy acute Status: Acute Plan: see above (5) Breast cancer metastasized to bone Status: Chronic Plan: Per Dr. Lucas. Palliative chemotherapy. (6) Cardiomyopathy Status: Chronic Plan: systolic chf compensated. ef 35% (7) HTN (hypertension) Status: Chronic Plan: Continue medications. (8) Depression Status: Chronic Plan: Continue medication. Problem Qualifiers (1) Breast cancer metastasized to bone: Qualified Code: C50.912 - Breast cancer metastasized to bone, left (2) HTN (hypertension): Qualified Code: I10 - Essential hypertension (3) Depression: Bryson Steiner MD Oct 11, 2016 08:43
[2016-10-11] MEDS ORDERED: LACTULOSE SYRUP 20 GM/30 ML CUP PO ONE (08:45)
[2016-10-11] MEDS: HYDROmorphone HCL 2 MG TAB PO PRN ×2 (17:56→22:34)
[2016-10-12] VITALS (7 sets, daily range): BP systolic 130–148; BP diastolic 66–101; PULSE 35–91; RESP 18–24; TEMP 96.2–97.1; O2SAT 96–100
[2016-10-12] MEDS: ALPRAZolam 0.5 MG TAB PO PRN (01:25)
[2016-10-12 07:11] LABS: BICARBONATE 18.5 MEQ/L (21.0-32.0); POTASSIUM 4.5 MEQ/L (3.5-5.1)
[2016-10-12] MEDS: PRAVASTATIN SOD 40 MG TAB PO SCH (09:31)
[2016-10-12] MEDS: METOPROLOL TARTRATE 50 MG TAB PO SCH ×2 (09:31→21:36)
[2016-10-12] MEDS: MULTIVITAMIN TAB PO SCH (09:31)
[2016-10-12] MEDS: ESCITALOPRAM OXALATE 20 MG TAB PO SCH (09:31)
[2016-10-12] MEDS: busPIRone HCL 10 MG TAB PO SCH ×2 (09:31→21:36)
[2016-10-12] MEDS: LISINOPRIL 10 MG TAB PO SCH ×2 (09:32→21:36)
--- NOTE | 2016-10-12 10:45 | HHI.PR ---
Subjective Remarks Pt awakens easily but is oriented only to self today Afebrile Objective Vitals Vital Signs Date Time Temp Pulse Resp B/P Pulse Ox O2 Delivery O2 Flow Rate FiO2 10/12/16 08:00 96.2 87 20 141/101 97 10/12/16 04:30 144/96 96 10/12/16 04:00 96.8 91 22 131/95 97 10/12/16 00:00 96.3 75 24 148/94 99 10/11/16 20:00 96.6 10/11/16 19:59 73 23 147/103 99 10/11/16 16:00 96.0 75 22 130/90 96 10/11/16 12:00 96.0 75 22 134/91 98 10/11/16 10/11/16 10/12/16 15:00 23:00 07:00 Intake Total 100 ml 120 ml Balance 100 ml 120 ml Intake Oral 100 ml 120 ml # Voids 5 2 2 # Bowel Movements 4 0 0 Result Diagram: 10/09/16 0620 10/12/16 0440 Other Results Laboratory Tests Test 10/10/16 10/11/16 10/12/16 12:19 04:15 04:40 Sodium Level 140 MEQ/L 138 MEQ/L 143 MEQ/L Potassium Level 4.4 MEQ/L 4.5 MEQ/L 4.5 MEQ/L Chloride Level 109 MEQ/L 109 MEQ/L 110 MEQ/L Carbon Dioxide Level 20.2 MEQ/L 19.2 MEQ/L 18.5 MEQ/L Anion Gap 11 MEQ/L 10 MEQ/L 15 MEQ/L Blood Urea Nitrogen 19 MG/DL 19 MG/DL 20 MG/DL Creatinine 1.52 MG/DL 1.32 MG/DL 1.38 MG/DL Estimat Glomerular Filtration 35 ML/MIN 41 ML/MIN 39 ML/MIN Rate Random Glucose 95 MG/DL 93 MG/DL 83 MG/DL Calcium Level 8.5 MG/DL 8.4 MG/DL 8.6 MG/DL Ammonia 44 MCMOL/L Imaging Last 72 hours Impressions Brain MRI 10/08/16 1536 Signed Impressions: Service Date/Time: October 18:33 - CONCLUSION: Stable meningioma not changed since 2015. 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 nodes s/p willie. mastectomy, LN dissection, and chemotherapy. - Now with recurrent adenocarcinoma with breast mets to thoracolumbar spine/ sacrum, bilateral femurs. - She has had difficulty walking on left leg probably due to tumor impingement on nerve - MRI brain (11/09/15) --> no metastasis to brain noted - Further imaging revealed widespread taz metastatic disease - Neurosurgery was consulted for the sacral mass which extends into the iliac area and sacroiliac joints which is likely irritating the left lumbosacral plexus or nerve roots and the cause for her back pain and left LE weakness. - She was admitted last year with metabolic encephalopathy - She is undergoing chemo with Dr Lucas. Last pet scan in August showed stable dz. - Pt was brought in for frequents falls/unsteady gait, and more delirium. - Labs at admission revealed some degree of dehydration/EMILEE. She had reported recent problems with diarrhea - There was question of UTI as an outpt and she had been placed on abx which made her sick. - Pt underwent eval for metabolic causes. - Her Ammonia level was slightly elevated at 44, lactulose given. - Pt had been initiated on abx in the ED, these were stopped. Urine culture with probable contaminants. - Pt was given gentle IVF but she is not eating or drinking much now. - We will give some gentle IVF again today and monitor for any evidence of CHF decompensation - Neurology was consulted during this admission and pt had an abnormal EEG noted. Case discussed with Dr. Lucas and with minimal abnormal finding in EEG noted in view of the complexity of the case and multiple medications, Keppra is not recommended to be added to her regimen at this time. - PT eval - High fall risk currently. - Consult palliative care - Pt is agreeable to SNF upon d/c but there are financial issues, will address with Case Management. - DVT prophylaxis (2) Falls frequently Status: Acute Plan: - See above (3) EMILEE (acute kidney injury) Status: Acute Plan: - See above (4) Encephalopathy acute Status: Acute Plan: - See above (5) Breast cancer metastasized to bone Status: Chronic Plan: - Per Dr. Lucas. Palliative chemotherapy. (6) Cardiomyopathy Status: Chronic Plan: - Pt with systolic CHF compensated. ef 35% (7) HTN (hypertension) Status: Chronic Plan: Continue medications. (8) Depression Status: Chronic Plan: Continue medication. Assessment and Plan Patient examined. Assessment and plan formulated with Analy Rosa PA-C. I agree with the above. Problem Qualifiers (1) Breast cancer metastasized to bone: Qualified Code: C50.912 - Breast cancer metastasized to bone, left (2) HTN (hypertension): Qualified Code: I10 - Essential hypertension (3) Depression: Analy Rosa Oct 12, 2016 10:45 Billy Henry DO Oct 13, 2016 10:07
[2016-10-12] MEDS ORDERED: HYDROmorphone HCL PF 1 MG/ML VIAL IV PUSH PRN (11:30)
[2016-10-12] MEDS ORDERED: SODIUM CHLOR 0.9% 1000 ML INJ 1,000 ML IV SCH (11:30)
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
--- NOTE | 2016-10-12 16:56 | PD.CONS ---
Consult Service Palliative Care . Consult Requested By Analy GOLDEN . Primary Care Physician Lesa Dickson M.D. . Reason for Consultation a. To assist with evaluation and management of symptoms including: Pain, debility b. To assist medical decision maker(s) with: better understanding of current medical conditions; weighing benefits/burdens of medical treatment options; making medical treatment decisions. . HPI History of Present Illness Ms. Gardner is a 60-year-old female with stage IV breast cancer with metastatic disease to the bone and lungs.. She presented to [facility] ED for evaluation on 10/08/16 as advised by her oncologist, Dr. Bryson Lucas. The patient reported an unsteady gait with multiple falls and progressively worsening confusion. The patient had been diagnosed with a UTI and was prescribed Macrodantin, but stopped taking it after 2 days because it was making her feel well. Obvious ecchymosis and abrasions were noted on the patient's forehead. Additional diagnostic findings include: * Vital signs: Pulse 74, respirations 17, BP 143/98, oxygen saturation 96% on room air, oral temperature 96.8 * Troponin: 0.15 * Lactic acid: 1.8 * Urinalysis with WBC and bacteria. Culture indicated. * MRI brain: Stable meningioma not changed since 2016 * EKG: Sinus rhythm, nonspecific T-wave abnormality. Patient was partially treated for UTI, urinalysis showing persistent UTI. She was subsequently admitted for further evaluation and medical management of dehydration and UTI. Oncology and neurology were consulted EEG in 2016 showed encephalopathy. Patient had an abnormal EEG on 10/10/16, however minimal. Keppra was not recommended at this time secondary to the complexity of this case and polypharmacy. Palliative Care was consulted to assist with symptom management and to discuss with the patient/family the benefits and burdens of her current illnesses and the options regarding future care. . Function/Cognitive Trajectory Patient was first diagnosed with breast cancer in 2009, subsequently receiving radiation and chemotherapy consisting of Adriamycin, Cytoxan and Taxol. A pet scan in October, showed extensive osseous metastatic disease with bony destruction including the sacrum. There was also metastatic disease in the proximal femur bilaterally and the thoracic lumbar spine and ribs. Additionally pulmonary masses were noted in the right lung. Patient has had a decrease in appetite over the past [address] Lucas is familiar with this patient and saw her at his office on 10/08/16. At that time the patient had reported 2 falls at home. Her gait was unsteady and she was mildly confused. She was unable to follow simple commands which is abnormal for this patient. Past Family Social History Coded Allergies: Macrodantin (Verified Allergy, Severe, NAUSEA, 10/08/16) Cipro (Verified Adverse Reaction, Intermediate, VOMITING, 10/08/16) ONLY ON PO Keflex (Verified Adverse Reaction, Intermediate, VOMITING, 10/08/16) ONLY ON PO Sulfa (Verified Adverse Reaction, Intermediate, VOMITING, 10/08/16) ONLY ON PO Past Medical History Major depressive disorder Anxiety Colitis Type 2 diabetes Diverticulosis PTSD Diabetic neuropathy Encephalopathy GERD Hypertension Hyperlipidemia Hyperparathyroidism Metastatic breast cancer to bone and lung Pulmonary hypertension . Past Surgical History Mastectomy Cholecystectomy Axillary lymph node dissection ERCP Laparoscopic repair of hernia Left lower parathyroidectomy Partial colectomy in 1989 Colectomy and adenoidectomy Open reduction internal fixation left elbow . Reported Medications Simvastatin 20 Mg Tab 20 Mg PO DAILY Propranolol (Propranolol HCl) 20 Mg Tab 20 Mg PO Q12HR Multiple Vitamin 1 Tab 1 Tab PO DAILY Metoprolol Tartrate 50 Mg Tab 50 Mg PO BID Magnesium Oxide 250 Mg Tab 250 Mg PO DAILY Lisinopril 20 Mg Tab 20 Mg PO DAILY Lamotrigine ER (Lamotrigine) 25 Mg Arturo 25 Mg PO DAILY Dilaudid (Hydromorphone HCl) 2 Mg Tab 2 Mg PO Q4H PRN Mucinex ER 12 HR (Guaifenesin) 600 Mg Arturo 600 Mg PO BID Lexapro (Escitalopram Oxalate) 20 Mg Tab 20 Mg PO DAILY Vitamin D-1000 (Cholecalciferol) 1,000 Unit Tab 1,000 Units PO DAILY Cetirizine (Cetirizine HCl) 10 Mg Tab 10 Mg PO DAILY Buspirone (Buspirone HCl) 5 Mg Tab 5 Mg PO BID PRN . Current Medications Medications (Trade) Dose Ordered Sig/Shayy Route Start Time Stop Time Status Last Admin (NS Flush) 2 ml UNSCH PRN IVF 10/08/16 15:15 10/10/16 08:08 (Lexapro) 20 mg DAILY PO 10/09/16 09:00 10/12/16 09:31 (Dilaudid) 2 mg Q4H PRN PO 10/08/16 20:45 10/11/16 22:34 (Lopressor) 50 mg BID PO 10/08/16 21:00 10/12/16 09:31 (Theragran) 1 tab DAILY PO 10/09/16 09:00 10/12/16 09:31 Patient Own Medication PT OWN MED: LAMOTRIG... DAILY PO 10/09/16 09:00 Hold (Pravachol) 40 mg DAILY PO 10/09/16 09:00 10/12/16 09:31 (Buspar) 15 mg Q12HR PO 10/08/16 21:00 10/12/16 09:31 (Xanax) 0.5 mg Q8H PRN PO 10/08/16 20:45 10/12/16 01:25 (Prinivil) 10 mg Q12HR PO 10/10/16 21:00 10/12/16 09:32 Clonidine 0.1 mg 0.1 mg Q4H PRN PO 10/10/16 17:30 (NS 1000 ml Inj) 1,000 ml @ 50 mls/hr Q20H IV 10/12/16 11:30 10/13/16 07:29 . Family History Patient's father at the age of 47 years post MVA. . Substance Use Tobacco: Former smoker Alcohol: Occasionally drinks alcohol Prescription med abuse: None known Illicits: None known . Psychosocial History Patient is originally from [place] but now lives in [place]. Legally . Patient is estranged from her mother and 3 adult siblings. Physical Exam Vital Signs Date Time Temp Pulse Resp B/P Pulse Ox O2 Delivery O2 Flow Rate FiO2 10/12/16 15:00 97.0 72 20 130/89 98 10/12/16 12:00 97.1 68 18 135/91 99 10/12/16 08:00 96.2 87 20 141/101 97 10/12/16 04:30 144/96 96 10/12/16 04:00 96.8 91 22 131/95 97 10/12/16 00:00 96.3 75 24 148/94 99 10/11/16 20:00 96.6 10/11/16 19:59 73 23 147/103 99 10/11/16 10/12/16 19:00 07:00 Intake Total 100 ml 120 ml Balance 100 ml 120 ml Intake Oral 100 ml 120 ml # Voids 5 4 # Bowel Movements 4 0 Exam CONSTITUTIONAL/GENERAL: This is an adequately nourished patient, in no apparent distress. TUBES/LINES/DRAINS: SKIN: No jaundice, rashes, or lesions. Ecchymoses on upper extremities. No wounds seen anteriorly. Skin temperature appropriate. Not diaphoretic. HEAD: Atraumatic. Normocephalic. EYES: Pupils equal and round and reactive. Extraocular motions intact. No scleral icterus. No injection or drainage. Fundi not examined. ENT: Hearing grossly normal. Nose without bleeding or purulent drainage. Throat without visible erythema, exudates, masses, or lesions. NECK: Trachea midline. Supple, nontender. No palpable thyroid enlargement or nodularity. CARDIOVASCULAR: Regular rate and rhythm without murmurs, gallops, or rubs. No JVD. Peripheral pulses symmetric. RESPIRATORY/CHEST: Symmetric, unlabored respirations. Clear to auscultation. Breath sounds equal bilaterally. No wheezes, rales, or rhonchi. GASTROINTESTINAL: Abdomen soft, non-tender, nondistended. No hepato-splenomegaly , or palpable masses. No guarding. Bowel sounds present. GENITOURINARY: Without palpable bladder distension. Zarate catheter in place. MUSCULOSKELETAL: Extremities without clubbing, cyanosis, or edema. No joint tenderness or effusion noted. No calf tenderness. No mottling or clubbing. LYMPHATICS: No palpable cervical or supraclavicular adenopathy. NEUROLOGICAL: Awake and alert. Motor and sensory grossly within normal limits. Follows commands. Cognitively sharp. Moves all extremities. PSYCHIATRIC: No obvious anxiety/depression. no apparent hallucinations or other psychotic thought process. Diagnostic Tests Laboratory Laboratory Tests Test 10/10/16 10/11/16 10/12/16 12:19 04:15 04:40 Sodium Level 140 MEQ/L 138 MEQ/L 143 MEQ/L (136-145) (136-145) (136-145) Potassium Level 4.4 MEQ/L 4.5 MEQ/L 4.5 MEQ/L (3.5-5.1) (3.5-5.1) (3.5-5.1) Chloride Level 109 MEQ/L 109 MEQ/L 110 MEQ/L (98-107) (98-107) (98-107) Carbon Dioxide Level 20.2 MEQ/L 19.2 MEQ/L 18.5 MEQ/L (21.0-32.0) (21.0-32.0) (21.0-32.0) Anion Gap 11 MEQ/L (5-15) 10 MEQ/L (5-15) 15 MEQ/L (5-15) Blood Urea Nitrogen 19 MG/DL (7-18) 19 MG/DL (7-18) 20 MG/DL (7-18) Creatinine 1.52 MG/DL 1.32 MG/DL 1.38 MG/DL (0.50-1.00) (0.50-1.00) (0.50-1.00) Estimat Glomerular Filtration 35 ML/MIN (>89) 41 ML/MIN (>89) 39 ML/MIN (>89) Rate Random Glucose 95 MG/DL 93 MG/DL 83 MG/DL (74-106) (74-106) (74-106) Calcium Level 8.5 MG/DL 8.4 MG/DL 8.6 MG/DL (8.5-10.1) (8.5-10.1) (8.5-10.1) Ammonia 44 MCMOL/L (11-32) Result Diagram: 10/09/16 0620 10/12/16 0440 Patient/Family Conference Issues Discussed: * Palliative care role, purpose, approach * Additional medical, psychosocial, and spiritual history * Patients general health, functional status, and cognitive changes in the months leading up to the current hospitalization * Patient/family understanding of the current medical problems * Patient/family understanding of prognosis * Patients goals of care as best understood from advance directives and/or conversations and/or values * Current medical treatment options and benefits/burdens of those options * Likely scenarios comparing ongoing aggressive care with a transition to comfort measures only * Questions answered to the best of my ability * Palliative care contact information provided Assessment and Plan Pertinent Non-Medical Issues Psychosocial: Spiritual: Legal: Ethical issues impacting care: Important Contacts Candido Gardner, spouse: [phone] Jasvir Phan, son: [phone] . Thank you for the opportunity to participate in the care of Ms. Gardner. Marissa Mackay Oct 12, 2016 16:56
[2016-10-12] MEDS: MEGESTROL ACETATE SUSP 400 MG/10 ML CUP PO SCH (18:01)
[2016-10-13] VITALS (7 sets, daily range): BP systolic 111–153; BP diastolic 71–100; PULSE 66–80; RESP 18–21; TEMP 96.7–97.7; O2SAT 92–100
[2016-10-13] MEDS: MEGESTROL ACETATE SUSP 400 MG/10 ML CUP PO SCH (09:08)
[2016-10-13] MEDS: PRAVASTATIN SOD 40 MG TAB PO SCH (09:08)
[2016-10-13] MEDS: MULTIVITAMIN TAB PO SCH (09:09)
[2016-10-13] MEDS: METOPROLOL TARTRATE 50 MG TAB PO SCH ×2 (09:09→21:09)
[2016-10-13] MEDS: LISINOPRIL 10 MG TAB PO SCH ×2 (09:09→21:08)
[2016-10-13] MEDS: ESCITALOPRAM OXALATE 20 MG TAB PO SCH (09:09)
[2016-10-13] MEDS: busPIRone HCL 10 MG TAB PO SCH ×2 (09:09→21:07)
--- NOTE | 2016-10-13 10:24 | HHI.PR ---
Subjective Remarks Pt's mentation is much improved today. Pt is A&Ox3 with some mild confusion. Pt able to feed herself today. Objective Vitals Vital Signs Date Time Temp Pulse Resp B/P Pulse Ox O2 Delivery O2 Flow Rate FiO2 10/13/16 08:00 97.7 66 21 133/98 100 10/13/16 04:00 97.1 77 20 136/97 100 10/13/16 01:22 77 20 153/99 100 10/13/16 00:00 96.7 80 20 121/100 92 10/12/16 21:33 96.7 50 18 142/66 100 10/12/16 15:00 97.0 72 20 130/89 98 10/12/16 12:00 97.1 68 18 135/91 99 10/12/16 10/12/16 10/13/16 15:00 23:00 07:00 # Voids 1 5 Result Diagram: 10/09/16 0620 10/12/16 0440 Imaging Last 72 hours Impressions Brain MRI 10/08/16 1536 Signed Impressions: Service Date/Time: October 18:33 - CONCLUSION: Stable meningioma not changed since 2015. 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 nodes s/p willie. mastectomy, LN dissection, and chemotherapy. - Now with recurrent adenocarcinoma with breast mets to thoracolumbar spine/ sacrum, bilateral femurs. - She has had difficulty walking on left leg probably due to tumor impingement on nerve - MRI brain (11/09/15) --> no metastasis to brain noted - Further imaging revealed widespread taz metastatic disease - Neurosurgery was consulted for the sacral mass which extends into the iliac area and sacroiliac joints which is likely irritating the left lumbosacral plexus or nerve roots and the cause for her back pain and left LE weakness. - She was admitted last year with metabolic encephalopathy - She is undergoing chemo with Dr Lucas. Last pet scan in August showed stable dz. - Pt was brought in for frequents falls/unsteady gait, and more delirium. - Labs at admission revealed some degree of dehydration/EMILEE. She had reported recent problems with diarrhea - There was question of UTI as an outpt and she had been placed on abx which made her sick. - Pt underwent eval for metabolic causes. - Her Ammonia level was slightly elevated at 44, lactulose given. - Pt had been initiated on abx in the ED, these were stopped. Urine culture with probable contaminants. - minimal abnormal findings on EEG --> will hold off on AED, unless overt seizure activity - marked improvement after receiving IVFs - ammonia still with mild elevation 46 (10/12/16), will start trail of lactulose 15ml QOD & observe - megace started 10/13/16 - continue PT - High fall risk currently. - Appreciate input from palliative care - Pt is agreeable to SNF, but there are some financial issues. [facility] case mgmt is investigating. - discharge home with home hospice would be another good option, pt/spouse to meet with Palliative again today. - anticipate d/c 10/14/16 - DVT prophylaxis (2) Falls frequently Status: Acute Plan: - See above (3) EMILEE (acute kidney injury) Status: Acute Plan: - See above (4) Encephalopathy acute Status: Acute Plan: - See above (5) Breast cancer metastasized to bone Status: Chronic Plan: - Per Dr. uLcas. Palliative chemotherapy. (6) Cardiomyopathy Status: Chronic Plan: - Pt with systolic CHF compensated. ef 35% (7) HTN (hypertension) Status: Chronic Plan: Continue medications. (8) Depression Status: Chronic Plan: Continue medication. Problem Qualifiers (1) Breast cancer metastasized to bone: Qualified Code: C50.912 - Breast cancer metastasized to bone, left (2) HTN (hypertension): Qualified Code: I10 - Essential hypertension (3) Depression: Billy Henry DO Oct 13, 2016 10:24 (3) Depression: Billy Henry DO Oct 13, 2016 10:24
[2016-10-13] MEDS: LACTULOSE SYRUP 20 GM/30 ML CUP PO SCH (11:52)
[2016-10-13 12:54] LABS: RAPID PLASMA REAGIN SCREEN NON-REACTIVE (NON-REACTVE)
--- NOTE | 2016-10-13 15:10 | HHI.HCPN ---
Reason for visit a. To assist with evaluation and management of symptoms including: Pain, debility b. To assist medical decision maker(s) with: better understanding of current medical conditions; weighing benefits/burdens of medical treatment options; making medical treatment decisions. . (Liya Paul) Subjective/Interval History Patient seen today to follow-up with planned family meeting with patient and , follow-up on symptoms of encephalopathy/confusion. Patient has remained stable. Other providers note marked improvement in her mental status today. She is now alert and oriented. Discharge planning for possible SNF/rehabilitation placement. I have spoken with her oncologist Dr. Lucas at length. He indicates that from an oncology standpoint her disease progression/disease burden is fairly stable at this time, and that from a cancer perspective he could consider to continue offer chemotherapy for her, but this would depend on her overall performance and functional status. If she continues to have declining mental status, weakness and falls then certainly she would not be a good candidate for ongoing chemotherapy, and would be appropriate for comfort oriented treatments only. At some point she will continue to decline from the underlying advanced cancer process , though for the most part she has done "fair" from a cancer standpoint. If patient wanted to pursue aggressive rehabilitation and therapy in order to improve status to continue chemotherapy this could be considered. Alternatively if patient is tiring and no longer desires to aggressively pursue rehabilitation, chemotherapy she is hospice appropriate. . Patient seen in room with spouse at bedside. She is much more alert today, for the most part oriented and appropriate though somewhat odd affect. indicates she is pretty much at baseline for her. Gently explore with them underlying cancer, recent trajectory, possibilities going forward including oncology's recommendations as per above, alternatively explore that if she did not desire to continue with chemotherapy possible side effects, potential complications and recurrent hospital admissions that she would have the option for comfort oriented treatments only, possibly in the home setting, with hospice support. Gently explore hospice roll, philosophy, services provided. All questions answered. Patient and tearfully appropriate at times. They do not wish to make any decisions at this time they wish to talk about it tonight and hopefully later with Dr. Lucas when he rounds. Patient has been endorsing that he does not see the point in any further chemotherapy he would rather her just be comfortable however they are not ready to make a decision. Patient just wants to go home, I have gently explored that she may have increasing care needs and at some point may not be able to return home. They also had been open to exploring possible SNF/rehabilitation however there are concerns regarding insurance coverage for this. Goals for now are aggressive however they're going to talk more about hospice, and additional chemotherapy versus transition to hospice. (Liya Paul) Advance Directives Living Will: Never completed Health Care Surrogate: Never completed (Liya Paul) Objective Vital Signs Date Time Temp Pulse Resp B/P Pulse Ox O2 Delivery O2 Flow Rate FiO2 10/13/16 12:00 97.6 67 20 142/95 99 10/13/16 08:00 97.7 66 21 133/98 100 10/13/16 04:00 97.1 77 20 136/97 100 10/13/16 01:22 77 20 153/99 100 10/13/16 00:00 96.7 80 20 121/100 92 10/12/16 21:33 96.7 50 18 142/66 100 Intake & Output 10/13/16 10/13/16 07:00 19:00 # Voids 5 Physical Exam CONSTITUTIONAL/GENERAL: This is an adequately nourished patient, in no apparent distress, alert TUBES/LINES/DRAINS: Port accessed right subclavian SKIN: No jaundice, rashes, or lesions. Ecchymosis around left eye, faint ecchymosis to forehead, abrasion to forehead. Skin temperature appropriate. Not diaphoretic. CARDIOVASCULAR: Regular rate and rhythm. No murmurs. Peripheral pulses symmetric. RESPIRATORY/CHEST: Symmetric, unlabored respirations on room air. Clear to auscultation. Breath sounds equal bilaterally. GASTROINTESTINAL: Abdomen soft, round, obese , non-tender, nondistended. No hepato-splenomegaly, or palpable masses. No guarding. Bowel sounds present. NEUROLOGICAL: Awake and alert, oriented times 23. Seems to have fairly reasonable insight to hospitalization, disease process. Follows commands. Moves all extremities. PSYCHIATRIC: No obvious anxiety/depression. . (Liya Paul) Diagnostic Tests Laboratory Laboratory Tests Test 10/11/16 10/12/16 10/12/16 04:15 04:40 15:30 Sodium Level 138 MEQ/L 143 MEQ/L (136-145) (136-145) Potassium Level 4.5 MEQ/L 4.5 MEQ/L (3.5-5.1) (3.5-5.1) Chloride Level 109 MEQ/L 110 MEQ/L (98-107) (98-107) Carbon Dioxide Level 19.2 MEQ/L 18.5 MEQ/L (21.0-32.0) (21.0-32.0) Anion Gap 10 MEQ/L (5-15) 15 MEQ/L (5-15) Blood Urea Nitrogen 19 MG/DL (7-18) 20 MG/DL (7-18) Creatinine 1.32 MG/DL 1.38 MG/DL (0.50-1.00) (0.50-1.00) Estimat Glomerular Filtration 41 ML/MIN (>89) 39 ML/MIN (>89) Rate Random Glucose 93 MG/DL 83 MG/DL (74-106) (74-106) Calcium Level 8.4 MG/DL 8.6 MG/DL (8.5-10.1) (8.5-10.1) Ammonia 44 MCMOL/L 46 MCMOL/L (11-32) (11-32) Folate GREATER THAN 20.0 NG/ML (3.1-17.5) Rapid Plasma Reagin NON-REACTIVE (NON-REACTVE) (Liya Paul) Result Diagram: 10/09/16 0620 10/12/16 0440 Assessment and Plan Disease Oriented Problem List: (1) Dehydration (2) Depression (3) Troponin I above reference range (4) Breast cancer metastasized to bone (5) Diabetic nephropathy associated with type 2 diabetes mellitus (6) Cardiomyopathy (7) Falls frequently (8) Encephalopathy acute (9) EMILEE (acute kidney injury) Symptom Scale: Pertinent Non-Medical Issues Psychosocial:Lives locally with her , though she is actually equally from him. He has been her primary caregiver. Originally from [place], though most recent resides in [place] for the past 11 years . Also supported by a local son. 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 Spiritual: Legal:Pt admitted for AMS, mental status fluctuates, limiting her ability to make decisions. , but legally to her spouse. Per [place] statutes he would be appropriate legal decision maker. Ethical issues impacting care: Important Contacts Candido Gardner, spouse: [phone] Jasvir Phan, son: [phone] . Prognosis This patient with metastatic stage IV breast cancer, appears to have been fairly stable in terms of disease progression, as per outpatient oncology. Has been on chemotherapy ongoing. She has had progressive debility in the home setting, and apparently has had increased care requirements. This may be multifactorial, general decline secondary to widespread disease. I will seek oncology input for additional prognostication from cancer standpoint. Plan * Legal decision maker:Pt admitted for AMS, mental status fluctuates, limiting her ability to make decisions. Significantly improved today, patient able to participate in decision-making today. , but legally to her spouse. Per [place] statutes he would be appropriate legal decision maker. * Goals: Met again with patient, her at bedside. *See subjective for additional detail. Goals for now are aggressive however they're going to talk more about hospice, and additional chemotherapy versus transition to hospice. * CODE STATUS: full (by default) * SYMPTOMS: --fatigue/debility- general decline overall in the past many mos per . increase in falls, weakness. Mental status fluctuates, though is generally clear. increased care needs in the home setting. reported spouse/CG works all day. Not clear he will be able to continue to provide care in the home setting? --confusion: initially concern for UTI, culture= contaminants, abx d/c. remains lethargic.brain MRI stable, no new acute findings (small known meningioma,stable). + metabolic/dehydration, may improve with ongoing tx * Palliative care will continue to follow during hospital course as condition evolves, to assist patient/decision-maker with understanding of medical conditions, weighing benefits/burdens of treatment options, for clarification of goals of treatment. Additionally will assist with any symptoms of palliative concern (Liya Paul) Time Spent Total Floor Time (mins): 45 >50% Counseling/Coord of Care: Yes (discussed with medical oncology, case management, RN) (Liya Paul) Attestation To help prompt me to consider important information that might be impacting today's encounter and assessment, information from prior notes written by myself or my colleagues may have been "brought forward" into today's note. My signature on this note, however, is an attestation that I personally performed the exam, history, and/or decision-making noted today, and, unless otherwise indicated, the interactions with patient, family, and staff as well as the review of records all occurred today. I also attest that the listed assessment and stated plan reflect my best clinical judgment today based on the combination of historical information, prior notes, and today's exam/ interactions. When time spent is documented, it refers only to time spent today by the signer, or if indicated, combined time spent today by collaborating physician/nurse practitioner. (Liya Paul) Collaborating MD Comments . Chart reviewed. Cased discussed with palliative care [employer]. Above [employer] note reviewed and I concur. . (Kemal Mcdonnell MD) Liya Paul Oct 13, 2016 15:10 Kemal Mcdonnell MD November 30, 2016 15:34
[2016-10-14] MEDS: HYDROmorphone HCL 2 MG TAB PO PRN ×3 (00:27→18:14)
[2016-10-14 00:55] VITALS: BP 110/80; PULSE 70; RESP 16; TEMP 97.2; O2SAT 100
[2016-10-14 05:26] VITALS: BP 134/93; PULSE 76; RESP 16; TEMP 96; O2SAT 99
[2016-10-14 07:43] LABS: AUTOMATED NEUTROPHIL # 4.3 TH/MM3 (1.8-7.7); BASOPHIL % 0.5 % (0.0-2.0); EOSINOPHIL % 0.4 % (0.0-4.0); HEMO FLAGS DIFF FINAL; LYMPH % 13.8 % (9.0-44.0); LYMPHOCYTE # 0.8 TH/MM3 (1.0-4.8); MEAN CORPUSCULAR HEMOGLOBIN 27.2 PG (27.0-34.0); MEAN CORPUSCULAR HGB CONC 30.9 % (32.0-36.0); MONO % 11.1 % (0.0-8.0); NEUT % 74.2 % (16.0-70.0); PLATELET COUNT 119 TH/MM3 (150-450); RED CELL DISTRIBUTION WIDTH 20.7 % (11.6-17.2); WHITE BLOOD COUNT 5.8 TH/MM3 (4.0-11.0)
[2016-10-14 08:00] VITALS: BP 127/90; PULSE 69; RESP 20; TEMP 97.1; O2SAT 99
[2016-10-14 08:12] LABS: BICARBONATE 22.3 MEQ/L (21.0-32.0); POTASSIUM 3.9 MEQ/L (3.5-5.1)
[2016-10-14] MEDS: PRAVASTATIN SOD 40 MG TAB PO SCH (08:47)
[2016-10-14] MEDS: LISINOPRIL 10 MG TAB PO SCH ×2 (08:47→21:14)
[2016-10-14] MEDS: METOPROLOL TARTRATE 50 MG TAB PO SCH ×2 (08:47→21:14)
[2016-10-14] MEDS: busPIRone HCL 10 MG TAB PO SCH ×2 (08:47→21:14)
[2016-10-14] MEDS: MULTIVITAMIN TAB PO SCH (08:47)
[2016-10-14] MEDS: ESCITALOPRAM OXALATE 20 MG TAB PO SCH (08:47)
[2016-10-14] MEDS: MEGESTROL ACETATE SUSP 400 MG/10 ML CUP PO SCH (08:49)
[2016-10-14] MEDS ORDERED: MEGE40SU PO (10:12)
[2016-10-14] MEDS ORDERED: ALPR.5 PO (10:12)
[2016-10-14] MEDS ORDERED: BUSP10TA PO (10:12)
[2016-10-14] MEDS ORDERED: LISI10TA3 PO (10:12)
[2016-10-14] MEDS ORDERED: DILA2TAB2 PO (10:12)
--- NOTE | 2016-10-14 10:17 | HHI.FF ---
Face to Face Verification Diagnosis: (1) HTN (hypertension) (2) Delirium (3) Falls frequently (4) Encephalopathy acute (5) Dehydration (6) EMILEE (acute kidney injury) (7) Breast cancer metastasized to bone (8) Diabetic nephropathy associated with type 2 diabetes mellitus Physical Therapy Order: Evaluate and Treat, Improve ambulation, Strength and gait training Home Health Nursing Order: Medical education Signs/symptoms of disease process Diabetic education Medication education-adverse effect Nursing assessment with vital signs [employer] Chemist Order: To Evaluate: Living conditions/environment, Support services Order: To Provide: Long range planning, Community services I have seen patient Marcia Gardner on 10/14/16. My clinical findings support the need for the requested home health care services because: Ltd mobility - disease progression Deconditioned w/ increased weakness Med compliance is questionable Limited ability to care for self Need for psychosocial assistance Impaired cognition/judgement High risk of falls I certify that my clinical findings support that this patient is homebound because: Impaired cognitive ability/safety Unsteady gait/balance Unsafe to leave home unassisted Need for psychosocial assistance [id number] bed/chair Unable to use public transportation Billy Henry DO Oct 14, 2016 10:17
--- NOTE | 2016-10-14 10:34 | HHI.DS ---
Discharge Summary Admission Date Oct 08, 2016 at 17:34 Discharge Date: Oct 14, 2016 Admitting Diagnosis dehydration, cystitis, stage 4 metastatic breast cancer (1) Delirium Diagnosis: Principal (2) Falls frequently Diagnosis: Principal (3) EMILEE (acute kidney injury) Diagnosis: Principal (4) Encephalopathy acute Diagnosis: Principal (5) Breast cancer metastasized to bone Diagnosis: Secondary (6) Cardiomyopathy Diagnosis: Secondary (7) HTN (hypertension) Diagnosis: Secondary (8) Depression Diagnosis: Secondary Consultants Dr. Bryson Lucas, Oncology Dr. Mcdonnell, Palliative Dr. Mary Saini, Neurology Brief History 60-year-old female with history of stage IV metastatic breast cancer with metastases to lungs and bones, presents here at the request of her oncologist, Dr. Bryson Lucas for evaluation. The patient apparently has been unsteady on her gait and has had multiple falls of late. She's also had confusion which is worsening over the last few days. She reportedly had a UTI and was prescribed Macrodantin as outpatient. Unfortunately, Macrodantin was making her sick on her stomach and she stopped the Macrodantin after only 2 days of treatment. There is no reported fevers, chills. There is no reported chest pain, chest pressure. There is no reported shortness of breath or cough. The patient has obvious ecchymosis and her periorbital area as well as abrasions to her forehead from a reported fall approximately 2 days ago. There was no loss of consciousness with that fall. Patient reports that she is unsteady on her feet especially when she is ill with an infection. Per Dr. Lucas's notes her disease is extensive but had stabilized when comparing most recent PET scans. Her pain has been controlled with Dilaudid at home and Zofran has been used effectively for her nausea. CBC/BMP: 10/14/16 0728 10/14/16 0728 Significant Findings Laboratory Tests Test 10/12/16 10/12/16 10/14/16 04:40 15:30 07:28 Chloride Level 110 MEQ/L 108 MEQ/L (98-107) (98-107) Carbon Dioxide Level 18.5 MEQ/L (21.0-32.0) Blood Urea Nitrogen 20 MG/DL (7-18) 21 MG/DL (7-18) Creatinine 1.38 MG/DL 1.22 MG/DL (0.50-1.00) (0.50-1.00) Estimat Glomerular Filtration 39 ML/MIN (>89) 45 ML/MIN (>89) Rate Ammonia 46 MCMOL/L (11-32) Folate GREATER THAN 20.0 NG/ML (3.1-17.5) Hemoglobin 11.4 GM/DL (11.6-15.3) Mean Corpuscular Hemoglobin 30.9 % Concent (32.0-36.0) Red Cell Distribution Width 20.7 % (11.6-17.2) Platelet Count 119 TH/MM3 (150-450) Neutrophils (%) (Auto) 74.2 % (16.0-70.0) Monocytes (%) (Auto) 11.1 % (0.0-8.0) Lymphocytes # (Auto) 0.8 TH/MM3 (1.0-4.8) Imaging Last Impressions Brain MRI 10/08/16 1536 Signed Impressions: Service Date/Time: October 18:33 - CONCLUSION: Stable meningioma not changed since 2015. 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 nodes s/p willie. mastectomy, LN dissection, and chemotherapy. - Now with recurrent adenocarcinoma with breast mets to thoracolumbar spine/ sacrum, bilateral femurs. - She has had difficulty walking on left leg probably due to tumor impingement on nerve - MRI brain (11/09/15) --> no metastasis to brain noted - Further imaging revealed widespread taz metastatic disease - Neurosurgery was consulted for the sacral mass which extends into the iliac area and sacroiliac joints which is likely irritating the left lumbosacral plexus or nerve roots and the cause for her back pain and left LE weakness. - She was admitted last year with metabolic encephalopathy - She is undergoing chemo with Dr Lucas. Last pet scan in August showed stable dz. - Pt was admitted d/t frequents falls/unsteady gait, and more delirium. - Labs at admission revealed some degree of dehydration/EMILEE. She had reported recent problems with diarrhea - There was question of UTI as an outpt and she had been placed on abx which made her sick. - Pt underwent eval for metabolic causes. - Her Ammonia level was slightly elevated at 44. Pt started on QOD lactulose with improvement of her ammonia level. - Pt had been initiated on abx in the ED, these were stopped. Urine culture with probable contaminants. - minimal abnormal findings on EEG --> will hold off on AED, unless overt seizure activity - marked improvement after receiving IVFs - megace started 10/13/16 - continue PT - High fall risk currently. - Appreciate input from palliative care - Pt was agreeable to SNF, but there are some financial issues. [facility] case mgmt is investigating. - discharge home with home hospice would be another good option, pt/spouse to meet with Palliative again today. - I am discharging pt to SNF 10/14/16. Today pt is NOT entirely sure that she will accept SNF placement. - If NOT SNF placement then pt will return to her home where she lives alone. I feel this is a poor option and places Ms. Gardner at high risk of neglect, injury, readmission, and . I explained these concerns to Ms. Gardner - If pt elects to return home, I will arrange HHC, home PT, and home social science analyst. - Pt states that she does want continued treatment - Case d/w Dr. Lucas by phone (10/14/16). Pt will need f/u with Dr. Lucas at his clinic to discuss further treatment options - see discharge orders. (2) Falls frequently Status: Acute Plan: - See above (3) EMILEE (acute kidney injury) - resolved - See above (4) Encephalopathy acute Status: Acute Plan: - See above (5) Breast cancer metastasized to bone Status: Chronic Plan: - see above (6) Cardiomyopathy Status: Chronic Plan: - Pt with systolic CHF compensated. ef 35% (7) HTN (hypertension) Status: Chronic Plan: Continue medications. (8) Depression Status: Chronic Plan: Continue medication. Pt Condition on Discharge: Stable Discharge Disposition: Discharge to SNF Discharge Instructions DIET: Follow Instructions for: Heart Healthy Diet Activities you can perform: Weight Bearing as Shira Follow up Referrals: Oncology - [address] Bryson Lucas PCP Follow-up - [address] Dickson f/u with PCP, Dr. Dickson, one week after discharge from [facility] New Medications: Alprazolam (Xanax) 0.5 Mg Tab 0.5 MG PO Q8H PRN anxiety #30 Ref 1 TAB Buspirone (Buspirone) 10 Mg Tab 15 MG PO Q12HR depression Days 30 Ref 0 TAB Lisinopril (Lisinopril) 10 Mg Tab 10 MG PO Q12HR htn Days 30 TAB Megestrol Liq (Megestrol Liq) 40 Mg/Ml Susp 400 MG PO DAILY hold for loose stool constipation Days 30 MG Continued Medications: Escitalopram (Lexapro) 20 Mg Tab 20 MG PO DAILY #30 Ref 0 TAB Hydromorphone (Dilaudid) 2 Mg Tab 2 MG PO Q4H PRN Pain Management #90 Ref 0 TAB (This prescription has been renewed) Lamotrigine ER (Lamotrigine ER) 25 Mg Arturo 25 MG PO DAILY Control Seizures Ref 0 TAB Magnesium Oxide (Magnesium Oxide) 250 Mg Tab 250 MG PO DAILY Ref 0 TAB Metoprolol Tartrate (Metoprolol Tartrate) 50 Mg Tab 50 MG PO BID Ref 0 TAB Multiple Vitamin (Multiple Vitamin) 1 Tab 1 TAB PO DAILY Nutritional Supplement Ref 0 TAB Discontinued Medications: Buspirone (Buspirone) 5 Mg Tab 5 MG PO BID PRN Anxiety Ref 0 TAB Cetirizine (Cetirizine) 10 Mg Tab 10 MG PO DAILY Allergies Ref 0 TAB Cholecalciferol (Vitamin D-1000) 1,000 Unit Tab 1000 UNITS PO DAILY Nutritional Supplement Ref 0 BOTTLE Guaifenesin ER 12 HR (Mucinex ER 12 HR) 600 Mg Arturo 600 MG PO BID Chest Congestion/Cough Ref 0 TAB Lisinopril (Lisinopril) 20 Mg Tab 20 MG PO DAILY Ref 0 TAB Propranolol (Propranolol) 20 Mg Tab 20 MG PO Q12HR Ref 0 TAB Simvastatin (Simvastatin) 20 Mg Tab 20 MG PO DAILY Cholesterol Management Ref 0 TAB Billy Henry DO Oct 14, 2016 10:34
[2016-10-14 12:00] VITALS: BP 135/90; PULSE 67; RESP 20; TEMP 97.1; O2SAT 97
[2016-10-14 16:00] VITALS: BP 132/88; PULSE 77; RESP 20; TEMP 96.7; O2SAT 98
--- NOTE | 2016-10-14 16:36 | HHI.HCPN ---
Reason for visit a. To assist with evaluation and management of symptoms including: Pain, debility b. To assist medical decision maker(s) with: better understanding of current medical conditions; weighing benefits/burdens of medical treatment options; making medical treatment decisions. . (Liya Paul) Subjective/Interval History Patient seen today to follow-up on goals, f/up on symptoms of encephalopathy/ confusion. Patient has remained stable, cleared for discharge to either home or rehab. D/w medical attending, EMERITA. CM had been trying to reach RE possible SNF placement today. Pt seen in room, at bedside (seen with Henri WILLIAMSON). She is alert, pleasant, oriented. indicates he just got here from work and has not spoke w CM yet. Pt and spouse are in agreement to seek rehab to try to restore some straining and then transition home. I did gently explore with patient and that if she experienced continued decline in rehabilitation for ongoing other issues following rehabilitation that she had the right to not elect further chemotherapy or further cancer treatment and elect comfort measures only. Goals for now are aggressive to continue restorative efforts and possibly obtain additional chemotherapy. Following discussion @ bedside advise case management this now present. (Liya Paul) Advance Directives Living Will: Never completed Health Care Surrogate: Never completed (Liya Paul) Objective Vital Signs Date Time Temp Pulse Resp B/P Pulse Ox O2 Delivery O2 Flow Rate FiO2 10/14/16 05:26 96.0 76 16 134/93 99 10/14/16 00:55 97.2 70 16 110/80 100 10/13/16 20:00 97.0 73 18 111/71 96 Intake & Output 10/14/16 10/14/16 07:00 19:00 Intake Total 220 ml Output Total 300 ml Balance -80 ml Intake Oral 220 ml Output Urine Total 300 ml # Voids 1 # Bowel Movements 1 Physical Exam CONSTITUTIONAL/GENERAL: This is an adequately nourished patient, in no apparent distress, alert TUBES/LINES/DRAINS: Port accessed right subclavian SKIN: No jaundice, rashes, or lesions. Ecchymosis around left eye, faint ecchymosis to forehead, abrasion to forehead. Skin temperature appropriate. Not diaphoretic. CARDIOVASCULAR: Regular rate and rhythm. No murmurs. Peripheral pulses symmetric. RESPIRATORY/CHEST: Symmetric, unlabored respirations on room air. Clear to auscultation. Breath sounds equal bilaterally. GASTROINTESTINAL: Abdomen soft, round, obese , non-tender, nondistended. No hepato-splenomegaly, or palpable masses. No guarding. Bowel sounds present. NEUROLOGICAL: Awake and alert, oriented times 23. Seems to have fairly reasonable insight to hospitalization, disease process. Follows commands. Moves all extremities. PSYCHIATRIC: No obvious anxiety/depression. . (Liya Paul) Diagnostic Tests Laboratory Laboratory Tests Test 10/12/16 10/12/16 10/14/16 04:40 15:30 07:28 Sodium Level 143 MEQ/L 139 MEQ/L (136-145) (136-145) Potassium Level 4.5 MEQ/L 3.9 MEQ/L (3.5-5.1) (3.5-5.1) Chloride Level 110 MEQ/L 108 MEQ/L (98-107) (98-107) Carbon Dioxide Level 18.5 MEQ/L 22.3 MEQ/L (21.0-32.0) (21.0-32.0) Anion Gap 15 MEQ/L (5-15) 9 MEQ/L (5-15) Blood Urea Nitrogen 20 MG/DL (7-18) 21 MG/DL (7-18) Creatinine 1.38 MG/DL 1.22 MG/DL (0.50-1.00) (0.50-1.00) Estimat Glomerular Filtration 39 ML/MIN (>89) 45 ML/MIN (>89) Rate Random Glucose 83 MG/DL 82 MG/DL (74-106) (74-106) Calcium Level 8.6 MG/DL 8.7 MG/DL (8.5-10.1) (8.5-10.1) Ammonia 46 MCMOL/L 20 MCMOL/L (11-32) (11-32) Folate GREATER THAN 20.0 NG/ML (3.1-17.5) Rapid Plasma Reagin NON-REACTIVE (NON-REACTVE) White Blood Count 5.8 TH/MM3 (4.0-11.0) Red Blood Count 4.20 MIL/MM3 (4.00-5.30) Hemoglobin 11.4 GM/DL (11.6-15.3) Hematocrit 37.0 % (35.0-46.0) Mean Corpuscular Volume 88.0 FL (80.0-100.0) Mean Corpuscular Hemoglobin 27.2 PG (27.0-34.0) Mean Corpuscular Hemoglobin 30.9 % Concent (32.0-36.0) Red Cell Distribution Width 20.7 % (11.6-17.2) Platelet Count 119 TH/MM3 (150-450) Mean Platelet Volume 8.0 FL (7.0-11.0) Neutrophils (%) (Auto) 74.2 % (16.0-70.0) Lymphocytes (%) (Auto) 13.8 % (9.0-44.0) Monocytes (%) (Auto) 11.1 % (0.0-8.0) Eosinophils (%) (Auto) 0.4 % (0.0-4.0) Basophils (%) (Auto) 0.5 % (0.0-2.0) Neutrophils # (Auto) 4.3 TH/MM3 (1.8-7.7) Lymphocytes # (Auto) 0.8 TH/MM3 (1.0-4.8) Monocytes # (Auto) 0.6 TH/MM3 (0-0.9) Eosinophils # (Auto) 0.0 TH/MM3 (0-0.4) Basophils # (Auto) 0.0 TH/MM3 (0-0.2) CBC Comment DIFF FINAL Differential Comment Magnesium Level 2.0 MG/DL (1.5-2.5) (Liya Paul) Result Diagram: 10/14/16 0728 10/14/16 0728 Imaging Last Impressions Brain MRI 10/08/16 1536 Signed Impressions: Service Date/Time: October 18:33 - CONCLUSION: Stable meningioma not changed since 2016. Marco Arceo MD (Liya Paul) Assessment and Plan Disease Oriented Problem List: (1) Dehydration (2) Depression (3) Troponin I above reference range (4) Breast cancer metastasized to bone (5) Diabetic nephropathy associated with type 2 diabetes mellitus (6) Cardiomyopathy (7) Falls frequently (8) Encephalopathy acute (9) EMILEE (acute kidney injury) Symptom Scale: Pertinent Non-Medical Issues Psychosocial:Lives locally with her , though she is actually equally from him. He has been her primary caregiver. Originally from [place], though most recent resides in [place] for the past 11 years . Also supported by a local son. 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 Spiritual: Legal:Pt admitted for AMS, mental status fluctuates, limiting her ability to make decisions. , but legally to her spouse. Per [place] statutes he would be appropriate legal decision maker. Ethical issues impacting care: Important Contacts Candido Gardner, spouse: [phone] Jasvir Phan, son: [phone] . Prognosis This patient with metastatic stage IV breast cancer, appears to have been fairly stable in terms of disease progression, as per outpatient oncology. Has been on chemotherapy ongoing. She has had progressive debility in the home setting, and apparently has had increased care requirements. This may be multifactorial, general decline secondary to widespread disease. I will seek oncology input for additional prognostication from cancer standpoint. Plan * Legal decision maker:Pt admitted for AMS, mental status fluctuates, limiting her ability to make decisions. Significantly improved today, patient able to participate in decision-making today. , but legally to her spouse. Per [place] statutes he would be appropriate legal decision maker. * Goals: Goals are aggressive, patient and wish to discharge to rehabilitation to restore function and possibly obtain more chemotherapy. * CODE STATUS: full (by default) * SYMPTOMS: --fatigue/debility- general decline overall in the past many mos per . increase in falls, weakness. Mental status fluctuates, though is generally clear. increased care needs in the home setting. reported spouse/CG works all day. Not clear he will be able to continue to provide care in the home setting? --confusion: initially concern for UTI, culture= contaminants, abx d/c. remains lethargic.brain MRI stable, no new acute findings (small known meningioma,stable). + metabolic/dehydration, may improve with ongoing tx * Palliative care will continue to follow during hospital course as condition evolves, to assist patient/decision-maker with understanding of medical conditions, weighing benefits/burdens of treatment options, for clarification of goals of treatment. Additionally will assist with any symptoms of palliative concern (Liya Paul) Attestation To help prompt me to consider important information that might be impacting today's encounter and assessment, information from prior notes written by myself or my colleagues may have been "brought forward" into today's note. My signature on this note, however, is an attestation that I personally performed the exam, history, and/or decision-making noted today, and, unless otherwise indicated, the interactions with patient, family, and staff as well as the review of records all occurred today. I also attest that the listed assessment and stated plan reflect my best clinical judgment today based on the combination of historical information, prior notes, and today's exam/ interactions. When time spent is documented, it refers only to time spent today by the signer, or if indicated, combined time spent today by collaborating physician/nurse practitioner. (Liya Paul) Collaborating MD Comments . Chart reviewed. Cased discussed with palliative care SEAM HAMMERER. Above SEAM HAMMERER note reviewed and I concur. . (Kemal Mcdonnell MD) Liya Paul Oct 14, 2016 16:36 Kemal Mcdonnell MD November 30, 2016 15:01
[2016-10-14 20:00] VITALS: BP 139/91; PULSE 91; RESP 18; TEMP 96.9; O2SAT 93
[2016-10-15] VITALS: BP 107/88; PULSE 66; RESP 17; TEMP 97.6; O2SAT 92
[2016-10-15 04:00] VITALS: BP 120/76; PULSE 77; RESP 20; TEMP 97.7; O2SAT 92
[2016-10-15 08:00] VITALS: BP 114/95; PULSE 60; RESP 18; TEMP 96.6; O2SAT 100
[2016-10-15] MEDS: MULTIVITAMIN TAB PO SCH (09:17)
[2016-10-15] MEDS: METOPROLOL TARTRATE 50 MG TAB PO SCH (09:17)
[2016-10-15] MEDS: LISINOPRIL 10 MG TAB PO SCH (09:17)
[2016-10-15] MEDS: PRAVASTATIN SOD 40 MG TAB PO SCH (09:17)
[2016-10-15] MEDS: ESCITALOPRAM OXALATE 20 MG TAB PO SCH (09:17)
[2016-10-15] MEDS: busPIRone HCL 10 MG TAB PO SCH (09:18)
[2016-10-15] MEDS: MEGESTROL ACETATE SUSP 400 MG/10 ML CUP PO SCH (09:20)
[2016-10-15] MEDS: LACTULOSE SYRUP 20 GM/30 ML CUP PO SCH (09:20)
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
[2016-10-15 12:00] VITALS: BP 142/106; PULSE 70; RESP 16; TEMP 97.4; O2SAT 97
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
[2016-10-15 15:53] LABS: FREE T4 1.26 NG/DL (0.76-1.46)
[2016-10-15 16:00] VITALS: BP 148/97; PULSE 60; RESP 16; TEMP 97.5; O2SAT 98
[2016-10-16 09:52] LABS: VITAMIN B6 5.8 ng/mL (2.1-21.7)
== END 2016-10-15 18:14 | DRG 71 ==
LOC: NEPC 14:39 → NEDA 17:34 → HOCA 20:34 → OBSVTOIN 10-15 11:28
PROVIDERS: ADMIT Hospitalist; ATTEND Hospitalist
DX: G93.40 Encephalopathy, unspecified (principal); N17.9 Acute kidney failure, unspecified; I11.0 Hypertensive heart disease with heart failure; C78.00 Secondary malignant neoplasm of unspecified lung; I50.20 Unspecified systolic (congestive) heart failure; C79.51 Secondary malignant neoplasm of bone; I42.9 Cardiomyopathy, unspecified; N30.90 Cystitis, unspecified without hematuria; E86.0 Dehydration; E11.21 Type 2 diabetes mellitus with diabetic nephropathy; S00.81XA Abrasion of other part of head, initial encounter; E11.40 Type 2 diabetes mellitus with diabetic neuropathy, unspecified; E78.5 Hyperlipidemia, unspecified; J45.909 Unspecified asthma, uncomplicated; I27.2 Other secondary pulmonary hypertension; K21.9 Gastro-esophageal reflux disease without esophagitis; R29.6 Repeated falls; W19.XXXA Unspecified fall, initial encounter; Z51.5 Encounter for palliative care; Z59.9 Problem related to housing and economic circumstances, unspecified; Z63.8 Other specified problems related to primary support group; Z87.442 Personal history of urinary calculi; D32.9 Benign neoplasm of meninges, unspecified; F03.90 Unspecified dementia, unspecified severity, without behavioral disturbance, psychotic disturbance, mood disturbance, and anxiety; F34.1 Dysthymic disorder; F43.10 Post-traumatic stress disorder, unspecified; Z87.891 Personal history of nicotine dependence; Z90.13 Acquired absence of bilateral breasts and nipples; Z90.49 Acquired absence of other specified parts of digestive tract; Z92.21 Personal history of antineoplastic chemotherapy; Z92.3 Personal history of irradiation; E21.3 Hyperparathyroidism, unspecified; Z85.3 Personal history of malignant neoplasm of breast; Y92.9 Unspecified place or not applicable
CPT/HCPCS: 70553; 80048; 80053; 81001; 82140; 82607; 82746; 83605; 83735; 84207; 84425; 84439; 84443; 84484; 85025; 85652; 86038; 86592; 87040; 87086; 93005; 95819; 96360; 96361; A9577; G0378; G8987-GP; G8988-GP; J0696; J3480; J7030